=== PATIENT | male | born 1985 ===

== ENCOUNTER 2021-06-13 17:39 | Inpatient (IN) | payer MEDICAID ==
[~2021-06-13] VITALS: Ht 152.4 cm; Wt 59.5 kg
[2021-06-13 18:33] LABS: Basophils # (auto) 0.1 10 ^3/uL (0-0.2); Basophils % (auto) 0.5 % (0.0-2.0); Eosinophils # (auto) 0.2 10 ^3/uL (0-0.8); Eosinophils % (auto) 1.2 % (0.0-7.0); Hematocrit 48.9 % (41.0-53.0); Hemoglobin 16.3 g/dL (13.5-17.5); Lymphocytes # (auto) 1.9 10 ^3/uL (0.4-5.4); Mean Corpuscular Hemoglobin 30.4 pg (28.0-32.0); Mean Corpuscular Hgb Conc. 33.4 g/dL (32.0-36.0); Mean Corpuscular Volume 90.9 fL (80.0-100.0); Monocytes # (auto) 0.9 10 ^3/uL (0-1.3); Monocytes % (auto) 5.7 % (0.0-12.0); Neutrophils # (auto) 11.9 10 ^3/uL (1.6-8.6); Neutrophils % (auto) 79.6 % (37.0-80.0); Nucleated Red Blood Cells % 0.1 %; Red Blood Cells 5.38 10^6/uL (4.5-5.90); Red Cell Distribution Width 12.9 % (11.8-14.3)
[2021-06-13 18:50] LABS: Albumin 3.9 g/dL (3.4-5.0); Calcium 10.1 mg/dL (8.5-10.1); Potassium 4.9 mmol/L (3.5-5.1)
[2021-06-13 18:53] LABS: BUN/Creatinine Ratio 16.2
[2021-06-13 18:55] LABS: Bilirubin, Total 0.7 mg/dL (0.2-1.0)
[2021-06-13 21:12] LABS: Urine Bacteria FEW /hpf (None Seen); Urine Blood 3+ /uL (Negative); Urine Mucus FEW (None Seen); Urine Specific Gravity 1.019 (1.001-1.035); Urine WBC 3051 /hpf (0 - 3); Urine WBC Clumps PRESENT /hpf (None Seen)
[2021-06-13] MEDS ORDERED: methylPREDNISolone SOD SUCC 125 MG/2 ML VL IV ONE (21:30)
[2021-06-13] MEDS ORDERED: MORPHINE SULFATE 4 MG/ML SYR/VIAL IV ONE (21:30)
[2021-06-13] MEDS ORDERED: HEPARIN DRIP/D5W 100UNITS/ML 250 ML IV SCH (22:00)
[2021-06-13] MEDS ORDERED: HEPARIN SODIUM (PORCINE) 5000 UNITS/ML 1ML VIAL IV ONE (22:00)
[2021-06-13] MEDS ORDERED: NITROGLYCERIN 0.4 MG SL TAB SL ONE (22:15)
[2021-06-13] MEDS ORDERED: MORPHINE SULFATE INJECTION 2 MG/ML SYRG IV PRN (22:30)
[2021-06-13] MEDS ORDERED: ACETAMINOPHEN 325 MG TAB PO PRN (22:30)
[2021-06-13] MEDS ORDERED: HYDROcodone-ACET 5/325MG TAB PO PRN (22:30)
[2021-06-13] MEDS ORDERED: DOCUSATE SOD 100 MG CAP PO PRN (22:30)
[2021-06-13] MEDS ORDERED: DEXTROSE (50%) 50ML SYRG IV PRN (22:30)
[2021-06-13] MEDS ORDERED: NITROGLYCERIN 0.4 MG SL TAB SL PRN (22:30)
[2021-06-13] MEDS ORDERED: MORPHINE SULFATE 4 MG/ML SYR/VIAL IV PRN (22:30)
[2021-06-13 23:13] LABS: INR 0.99 (0.9-1.15)
[2021-06-14] VITALS: BP 135/87
[2021-06-14] MEDS: SODIUM CHLORIDE 0.9% 1,000 ML IV SCH ×2 (00:19→16:48)
[2021-06-14] MEDS: cefTRIAXone 1GM/50ML D5W 50 ML IV SCH ×2 (00:19→22:00)
[2021-06-14] MEDS: LORazepam 2MG/ML-1ML VIAL IV PRN (02:17)
[2021-06-14] MEDS ORDERED: NITROGLYCERIN 2% OINT 1GM PKG TD SCH (03:00)
[2021-06-14] MEDS: METOPROLOL TARTRATE 25 MG TAB PO SCH ×3 (03:17→22:09)
[2021-06-14 04:57] VITALS: BP 116/83
[2021-06-14 06:09] LABS: Basophils # (auto) 0 10 ^3/uL (0-0.2); Basophils % (auto) 0.1 % (0.0-2.0); Eosinophils # (auto) 0 10 ^3/uL (0-0.8); Eosinophils % (auto) 0.1 % (0.0-7.0); Hematocrit 48.8 % (41.0-53.0); Hemoglobin 16.3 g/dL (13.5-17.5); Lymphocytes # (auto) 1.2 10 ^3/uL (0.4-5.4); Mean Corpuscular Hemoglobin 30.6 pg (28.0-32.0); Mean Corpuscular Hgb Conc. 33.4 g/dL (32.0-36.0); Mean Corpuscular Volume 91.6 fL (80.0-100.0); Monocytes # (auto) 0.2 10 ^3/uL (0-1.3); Monocytes % (auto) 1.4 % (0.0-12.0); Neutrophils # (auto) 11.4 10 ^3/uL (1.6-8.6); Neutrophils % (auto) 89.4 % (37.0-80.0); Nucleated Red Blood Cells % 0.1 %; Red Blood Cells 5.33 10^6/uL (4.5-5.90); Red Cell Distribution Width 12.5 % (11.8-14.3); White Blood Cell 12.8 10^3/uL (4.4-10.8)
[2021-06-14 06:22] LABS: Albumin 3.1 g/dL (3.4-5.0); Calcium 8.8 mg/dL (8.5-10.1); Potassium 4.3 mmol/L (3.5-5.1)
[2021-06-14 06:28] LABS: INR 1.03 (0.9-1.15); Partial Thromboplastin Time 42.5 sec (23.6-33.0)
[2021-06-14 06:29] LABS: BUN/Creatinine Ratio 23.4; Bilirubin, Total 0.5 mg/dL (0.2-1.0); Total Protein 7.3 g/dL (6.4-8.2)
[2021-06-14] MEDS: InsuLIN REG 1unit/0.01ml Soln (100units/ml) SC SCH ×4 (06:48→22:19)
[2021-06-14] MEDS: ACCU-CHEK COMFORT CURVE STRIP VI SCH ×4 (06:48→22:09)
[2021-06-14] MEDS ORDERED: ANGIOMAX 250 MG VIAL IV ONE (07:19)
[2021-06-14] MEDS ORDERED: HEPARIN SODIUM (PORCINE) 5000 UNITS/ML 1ML VIAL ONE (07:19)
[2021-06-14] MEDS ORDERED: VERAPAMIL 2.5MG/ML INJ 2ML VIAL IV ONE (07:19)
[2021-06-14] MEDS ORDERED: MIDAZOLAM HCL 2MG/2ML 2ml VIAL (1mg/ml) ONE ×2 (07:20→11:15)
[2021-06-14] MEDS ORDERED: HEPARIN IN NS 1000Units/500mL 0 ML ONE (07:20)
[2021-06-14] MEDS ORDERED: fentaNYL CITRATE 100 MCG/2 ML VL ONE (07:20)
[2021-06-14] MEDS ORDERED: SODIUM CHL 0.9% 50 ML ONE (07:20)
[2021-06-14] MEDS ORDERED: IODIXANOL 320MG/ML 100ML BTL IV ONE ×3 (07:20→11:13)
[2021-06-14] MEDS ORDERED: LIDOCAINE 2%HCL (LOCAL ANESTH.) INJ 20ML MDV ONE ×2 (07:20→10:00)
[2021-06-14] MEDS ORDERED: INFLUENZA QUAD 2021-2022 0.5 ML SYRG IM ONE (07:45)
[2021-06-14 09:01] VITALS: BP 122/70
[2021-06-14] MEDS ORDERED: ASPirin 81 mg TAB PO SCH (10:00)
[2021-06-14] MEDS ORDERED: CLOPIDOGREL 300 MG TAB ONE (11:20)
[2021-06-14] MEDS ORDERED: ASPirin 325 MG TAB ONE (11:22)
[2021-06-14] MEDS: FAMOTIDINE (10MG/ML) 2ML VL IV SCH ×2 (13:38→22:09)
[2021-06-14 17:00] VITALS: BP 100/65
[2021-06-14 22:00] VITALS: BP 121/73
[2021-06-14] MEDS ORDERED: ATORVASTATIN 20 MG TAB PO SCH (22:00)
[2021-06-14] MEDS ORDERED: levoFLOXacin 500MG 100 ML IV SCH (22:00)
[2021-06-14] MEDS: ATORVASTATIN 20 MG TAB PO SCH (22:08)
[2021-06-15] MEDS: diphenhdrAMINE HCL 50 MG/1 ML VL IV PRN (02:22)
[2021-06-15 05:00] VITALS: BP 105/69
[2021-06-15] MEDS: InsuLIN REG 1unit/0.01ml Soln (100units/ml) SC SCH ×4 (06:25→22:29)
[2021-06-15] MEDS: ACCU-CHEK COMFORT CURVE STRIP VI SCH ×4 (06:25→22:26)
[2021-06-15 07:18] LABS: Basophils # (auto) 0 10 ^3/uL (0-0.2); Basophils % (auto) 0.1 % (0.0-2.0); Eosinophils # (auto) 0 10 ^3/uL (0-0.8); Hemoglobin 15.3 g/dL (13.5-17.5); Lymphocytes # (auto) 1.6 10 ^3/uL (0.4-5.4); Mean Corpuscular Hemoglobin 30.8 pg (28.0-32.0); Mean Corpuscular Volume 90.8 fL (80.0-100.0); Monocytes # (auto) 1.1 10 ^3/uL (0-1.3); Monocytes % (auto) 8.6 % (0.0-12.0); Neutrophils # (auto) 9.7 10 ^3/uL (1.6-8.6); Neutrophils % (auto) 78.3 % (37.0-80.0); Nucleated Red Blood Cells % 0.1 %; Red Blood Cells 4.96 10^6/uL (4.5-5.90); Red Cell Distribution Width 12.3 % (11.8-14.3); White Blood Cell 12.4 10^3/uL (4.4-10.8)
[2021-06-15 07:42] LABS: Albumin 2.7 g/dL (3.4-5.0); BUN/Creatinine Ratio 23.8; Calcium 8.5 mg/dL (8.5-10.1)
[2021-06-15 07:47] LABS: Bilirubin, Total 0.7 mg/dL (0.2-1.0); Total Protein 6.6 g/dL (6.4-8.2)
[2021-06-15 08:15] VITALS: BP 100/73
[2021-06-15 08:30] VITALS: BP 100/73
[2021-06-15] MEDS: METOPROLOL TARTRATE 25 MG TAB PO SCH ×2 (10:00→22:00)
[2021-06-15] MEDS ORDERED: CIPROFLOXACIN 400MG/200ML 200 ML IV SCH (10:00)
[2021-06-15] MEDS ORDERED: LISINOPRIL 5 MG TAB PO SCH (10:00)
[2021-06-15] MEDS: FAMOTIDINE (10MG/ML) 2ML VL IV SCH ×2 (10:08→22:26)
[2021-06-15] MEDS: ASPirin-EC 81 mg tab PO SCH (10:08)
[2021-06-15] MEDS: CLOPIDOGREL BISULFATE 75 MG TAB PO SCH (10:09)
[2021-06-15] MEDS: NITROFURANTOIN 100 mg CAP PO SCH ×2 (13:02→22:26)
[2021-06-15 13:30] VITALS: BP 101/68
[2021-06-15 16:46] VITALS: BP 117/76
[2021-06-15 22:00] VITALS: BP 103/70
[2021-06-15] MEDS: SACUBITRIL-VALSARTAN 24mg/26mg TAB PO SCH (22:00)
[2021-06-15] MEDS: ATORVASTATIN 20 MG TAB PO SCH (22:26)
[2021-06-16 05:00] VITALS: BP 107/67
[2021-06-16] MEDS: ACCU-CHEK COMFORT CURVE STRIP VI SCH ×4 (06:15→21:24)
[2021-06-16] MEDS: InsuLIN REG 1unit/0.01ml Soln (100units/ml) SC SCH ×4 (06:16→21:27)
[2021-06-16 08:15] VITALS: BP 110/76
[2021-06-16 08:58] LABS: BUN/Creatinine Ratio 19.2; Calcium 8.5 mg/dL (8.5-10.1); Potassium 3.8 mmol/L (3.5-5.1)
[2021-06-16 09:00] VITALS: BP 110/76
[2021-06-16] MEDS ORDERED: metroNIDAZOLE 500MG/100ML 100 ML IV SCH (10:00)
[2021-06-16] MEDS: FAMOTIDINE (10MG/ML) 2ML VL IV SCH ×2 (10:00→21:23)
[2021-06-16] MEDS: SACUBITRIL-VALSARTAN 24mg/26mg TAB PO SCH ×2 (10:01→21:23)
[2021-06-16] MEDS: ASPirin-EC 81 mg tab PO SCH (10:01)
[2021-06-16] MEDS: CLOPIDOGREL BISULFATE 75 MG TAB PO SCH (10:01)
[2021-06-16] MEDS: NITROFURANTOIN 100 mg CAP PO SCH ×2 (10:01→21:23)
[2021-06-16] MEDS: METOPROLOL TARTRATE 25 MG TAB PO SCH ×2 (10:23→21:24)
[2021-06-16 13:00] VITALS: BP 90/61
[2021-06-16 17:03] VITALS: BP 112/77
[2021-06-16] MEDS: metroNIDAZOLE 500MG/100ML 100 ML IV SCH (18:20)
[2021-06-16] MEDS ORDERED: CLINIMIX PER PHARMACY 0 ML IV SCH ×2 (18:30→23:30)
[2021-06-16] MEDS: CLINIMIX PER PHARMACY IV NR (19:47)
[2021-06-16] MEDS: ATORVASTATIN 20 MG TAB PO SCH (21:08)
[2021-06-16 22:00] VITALS: BP 107/69
[2021-06-17] MEDS: metroNIDAZOLE 500MG/100ML 100 ML IV SCH ×3 (02:03→18:08)
[2021-06-17 05:00] VITALS: BP 106/66
[2021-06-17] MEDS: ACCU-CHEK COMFORT CURVE STRIP VI SCH ×7 (06:27→23:58)
[2021-06-17] MEDS: InsuLIN REG 1unit/0.01ml Soln (100units/ml) SC SCH ×3 (06:28→18:00)
[2021-06-17 09:36] VITALS: BP 104/76
[2021-06-17] MEDS ORDERED: ERTAPENEM SOD INJ 1 GM in SODIUM CHL 0.9% 50 ML IV ONE (11:00)
[2021-06-17 11:04] LABS: Potassium 3.5 mmol/L (3.5-5.1)
[2021-06-17 11:06] LABS: Magnesium 2.2 mg/dL (1.6-2.6); Phosphorus 2.9 mg/dL (2.5-4.90); Pre Albumin 13.4 mg/dL (20.0-40.0)
[2021-06-17 11:26] LABS: Albumin 2.4 g/dL (3.4-5.0); Bilirubin, Total 1.5 mg/dL (0.2-1.0); Calcium 8.3 mg/dL (8.5-10.1)
[2021-06-17] MEDS: FAMOTIDINE (10MG/ML) 2ML VL IV SCH ×2 (11:34→21:23)
[2021-06-17] MEDS: CARVEDILOL 3.125 MG TAB PO SCH ×2 (11:35→22:00)
[2021-06-17] MEDS: ASPirin-EC 81 mg tab PO SCH (11:36)
[2021-06-17] MEDS: CLOPIDOGREL BISULFATE 75 MG TAB PO SCH (11:36)
[2021-06-17] MEDS: SACUBITRIL-VALSARTAN 24mg/26mg TAB PO SCH ×2 (11:36→21:24)
[2021-06-17] MEDS ORDERED: DEXTROSE (50%) 50ML SYRG IV SCH (12:00)
[2021-06-17] MEDS ORDERED: POTASSIUM PHOSPHATE 22 MEQ in SODIUM CHL 0.9% 100 ML IV ONE (12:00)
[2021-06-17 13:00] VITALS: BP 101/54
[2021-06-17] MEDS ORDERED: IOTHALAMATE MEGLUMINE INJ 250ML BOT UR ONE (15:23)
[2021-06-17 17:00] VITALS: BP 109/71
[2021-06-17] MEDS: CLINIMIX PER PHARMACY IV NR (19:49)
[2021-06-17] MEDS ORDERED: AMINO ACID INFUSION IN D10W 1,000 ML IV NR (20:00)
[2021-06-17] MEDS: ATORVASTATIN 20 MG TAB PO SCH (21:24)
[2021-06-17 22:00] VITALS: BP 101/60
[2021-06-18] MEDS: InsuLIN REG 1unit/0.01ml Soln (100units/ml) SC SCH ×5 (00:02→23:58)
[2021-06-18] MEDS: metroNIDAZOLE 500MG/100ML 100 ML IV SCH ×3 (03:49→17:24)
[2021-06-18 05:30] VITALS: BP 106/75
[2021-06-18] MEDS: ACCU-CHEK COMFORT CURVE STRIP VI SCH ×8 (05:54→23:59)
[2021-06-18 07:25] LABS: Albumin 2.4 g/dL (3.4-5.0); Calcium 8.2 mg/dL (8.5-10.1); Magnesium 2.3 mg/dL (1.6-2.6); Potassium 3.9 mmol/L (3.5-5.1)
[2021-06-18 07:27] LABS: BUN/Creatinine Ratio 15.8; Phosphorus 3.3 mg/dL (2.5-4.90); Total Protein 6.7 g/dL (6.4-8.2)
[2021-06-18 08:41] VITALS: BP 105/75
[2021-06-18] MEDS: FAMOTIDINE (10MG/ML) 2ML VL IV SCH ×2 (10:45→21:13)
[2021-06-18] MEDS: ASPirin-EC 81 mg tab PO SCH (10:45)
[2021-06-18] MEDS: CLOPIDOGREL BISULFATE 75 MG TAB PO SCH (10:47)
[2021-06-18] MEDS: ERTAPENEM SOD INJ 1 GM in SODIUM CHL 0.9% 50 ML IV SCH (10:48)
[2021-06-18] MEDS: SACUBITRIL-VALSARTAN 24mg/26mg TAB PO SCH ×2 (11:05→21:13)
[2021-06-18] MEDS: CARVEDILOL 3.125 MG TAB PO SCH ×2 (11:05→21:47)
[2021-06-18 12:37] LABS: INR 1.12 (0.9-1.15); Partial Thromboplastin Time 30.2 sec (23.6-33.0)
[2021-06-18 13:00] VITALS: BP 94/61
[2021-06-18] MEDS ORDERED: LIDOCAINE 1% (LOCAL ANESTH.) PF 5ml SDV ID ONE (15:30)
[2021-06-18 17:00] VITALS: BP 112/79
[2021-06-18] MEDS: LORazepam 2MG/ML-1ML VIAL IV PRN (17:01)
[2021-06-18] MEDS ORDERED: AMINO ACID ELECTROLYTE W/ CALC 1,000 ML IV SCH (20:00)
[2021-06-18] MEDS: ATORVASTATIN 20 MG TAB PO SCH (21:13)
[2021-06-18] MEDS: SODIUM CHLOR 0.9% PF (SALINE LOCK) 10ML VIAL/SYR IV SCH (21:46)
[2021-06-18 22:00] VITALS: BP 94/67
[2021-06-19] MEDS: metroNIDAZOLE 500MG/100ML 100 ML IV SCH ×3 (02:20→17:48)
[2021-06-19 04:51] VITALS: BP 107/70
[2021-06-19] MEDS: ACCU-CHEK COMFORT CURVE STRIP VI SCH ×5 (05:43→23:38)
[2021-06-19] MEDS: InsuLIN REG 1unit/0.01ml Soln (100units/ml) SC SCH ×4 (05:45→23:39)
[2021-06-19 07:25] LABS: Albumin 2.7 g/dL (3.4-5.0); Calcium 8.4 mg/dL (8.5-10.1); Magnesium 2.4 mg/dL (1.6-2.6); Potassium 4.8 mmol/L (3.5-5.1)
[2021-06-19 07:30] LABS: BUN/Creatinine Ratio 19.4; Bilirubin, Total 0.8 mg/dL (0.2-1.0); Phosphorus 3.3 mg/dL (2.5-4.90); Total Protein 6.4 g/dL (6.4-8.2)
[2021-06-19 09:00] VITALS: BP 106/67
[2021-06-19] MEDS: ERTAPENEM SOD INJ 1 GM in SODIUM CHL 0.9% 50 ML IV SCH (10:24)
[2021-06-19] MEDS: FAMOTIDINE (10MG/ML) 2ML VL IV SCH ×2 (10:25→22:05)
[2021-06-19] MEDS: CLOPIDOGREL BISULFATE 75 MG TAB PO SCH (10:28)
[2021-06-19] MEDS: ASPirin-EC 81 mg tab PO SCH (10:28)
[2021-06-19] MEDS: SACUBITRIL-VALSARTAN 24mg/26mg TAB PO SCH ×2 (10:28→22:07)
[2021-06-19] MEDS: CARVEDILOL 3.125 MG TAB PO SCH ×2 (10:29→22:07)
[2021-06-19] MEDS: SODIUM CHLOR 0.9% PF (SALINE LOCK) 10ML VIAL/SYR IV SCH ×2 (10:30→22:08)
[2021-06-19 13:00] VITALS: BP 106/70
[2021-06-19 16:57] VITALS: BP 112/65
[2021-06-19 20:00] VITALS: BP 102/86
[2021-06-19] MEDS ORDERED: AMINO ACID INFUSION IN D10W 1,000 ML IV NR (20:00)
[2021-06-19 21:59] VITALS: BP 102/56
[2021-06-19] MEDS: ATORVASTATIN 20 MG TAB PO SCH (22:07)
[2021-06-20] MEDS: metroNIDAZOLE 500MG/100ML 100 ML IV SCH ×3 (02:38→18:13)
[2021-06-20 05:00] VITALS: BP 101/58
[2021-06-20] MEDS: ACCU-CHEK COMFORT CURVE STRIP VI SCH ×3 (06:01→18:00)
[2021-06-20] MEDS: InsuLIN REG 1unit/0.01ml Soln (100units/ml) SC SCH ×3 (06:03→18:00)
[2021-06-20 06:17] LABS: Albumin 2.6 g/dL (3.4-5.0); Calcium 8.3 mg/dL (8.5-10.1); Magnesium 2.3 mg/dL (1.6-2.6); Potassium 5.3 mmol/L (3.5-5.1)
[2021-06-20 06:20] LABS: BUN/Creatinine Ratio 16.3; Bilirubin, Total 0.5 mg/dL (0.2-1.0); Phosphorus 2.6 mg/dL (2.5-4.90); Total Protein 6.7 g/dL (6.4-8.2)
[2021-06-20 09:00] VITALS: BP 112/74
[2021-06-20] MEDS: ERTAPENEM SOD INJ 1 GM in SODIUM CHL 0.9% 50 ML IV SCH (09:21)
[2021-06-20] MEDS: FAMOTIDINE (10MG/ML) 2ML VL IV SCH ×2 (09:22→21:46)
[2021-06-20] MEDS: SODIUM CHLOR 0.9% PF (SALINE LOCK) 10ML VIAL/SYR IV SCH ×2 (09:22→21:48)
[2021-06-20] MEDS: CARVEDILOL 3.125 MG TAB PO SCH ×2 (09:23→21:48)
[2021-06-20] MEDS: SACUBITRIL-VALSARTAN 24mg/26mg TAB PO SCH ×2 (09:24→21:46)
[2021-06-20] MEDS: ASPirin-EC 81 mg tab PO SCH (10:45)
[2021-06-20] MEDS: CLOPIDOGREL BISULFATE 75 MG TAB PO SCH (10:46)
[2021-06-20 13:00] VITALS: BP 103/76
[2021-06-20 16:45] VITALS: BP 85/55
[2021-06-20 20:00] VITALS: BP 99/65
[2021-06-20] MEDS ORDERED: AMINO ACID INFUSION IN D10W 1,000 ML IV NR (20:00)
[2021-06-20] MEDS: ATORVASTATIN 20 MG TAB PO SCH (21:46)
[2021-06-20 22:00] VITALS: BP 99/65
[2021-06-21] MEDS: ACCU-CHEK COMFORT CURVE STRIP VI SCH ×5 (00:06→23:42)
[2021-06-21] MEDS: metroNIDAZOLE 500MG/100ML 100 ML IV SCH ×3 (02:30→17:39)
[2021-06-21] MEDS: InsuLIN REG 1unit/0.01ml Soln (100units/ml) SC SCH ×5 (05:56→23:42)
[2021-06-21 06:05] VITALS: BP 99/62
[2021-06-21 06:34] LABS: Albumin 2.4 g/dL (3.4-5.0); Calcium 7.9 mg/dL (8.5-10.1); Magnesium 2.7 mg/dL (1.6-2.6); Potassium 4.4 mmol/L (3.5-5.1)
[2021-06-21 06:39] LABS: BUN/Creatinine Ratio 16.3; Bilirubin, Total 0.4 mg/dL (0.2-1.0); Phosphorus 2.8 mg/dL (2.5-4.90)
[2021-06-21 08:41] VITALS: BP 104/74
[2021-06-21] MEDS: CLOPIDOGREL BISULFATE 75 MG TAB PO SCH (09:20)
[2021-06-21] MEDS: FAMOTIDINE (10MG/ML) 2ML VL IV SCH ×2 (09:21→21:57)
[2021-06-21] MEDS: CARVEDILOL 3.125 MG TAB PO SCH ×2 (09:21→21:58)
[2021-06-21] MEDS: ASPirin-EC 81 mg tab PO SCH (09:21)
[2021-06-21] MEDS: SODIUM CHLOR 0.9% PF (SALINE LOCK) 10ML VIAL/SYR IV SCH ×2 (09:21→21:58)
[2021-06-21] MEDS: SACUBITRIL-VALSARTAN 24mg/26mg TAB PO SCH ×2 (10:00→21:58)
[2021-06-21 12:46] VITALS: BP 108/67
[2021-06-21] MEDS: ERTAPENEM SOD INJ 1 GM in SODIUM CHL 0.9% 50 ML IV SCH (13:28)
[2021-06-21] MEDS ORDERED: TPN PER PHARMACY 0 ML IV SCH (14:45)
[2021-06-21 16:51] VITALS: BP 103/67
[2021-06-21] MEDS ORDERED: AMINO ACID INFUSION IN D10W 1,000 ML IV NR (20:00)
[2021-06-21 21:30] VITALS: BP 102/61
[2021-06-21] MEDS: ATORVASTATIN 20 MG TAB PO SCH (22:03)
[2021-06-22] VITALS (7 sets, daily range): BP systolic 86–103; BP diastolic 53–70
[2021-06-22] MEDS: metroNIDAZOLE 500MG/100ML 100 ML IV SCH ×3 (03:56→18:32)
[2021-06-22] MEDS: InsuLIN REG 1unit/0.01ml Soln (100units/ml) SC SCH ×3 (05:56→17:26)
[2021-06-22] MEDS: ACCU-CHEK COMFORT CURVE STRIP VI SCH ×3 (05:57→17:25)
[2021-06-22 07:03] LABS: Calcium 8.4 mg/dL (8.5-10.1); Potassium 4.4 mmol/L (3.5-5.1)
[2021-06-22 07:06] LABS: Albumin 2.5 g/dL (3.4-5.0); BUN/Creatinine Ratio 16.9; Magnesium 2.5 mg/dL (1.6-2.6)
[2021-06-22 07:09] LABS: Bilirubin, Total 0.5 mg/dL (0.2-1.0); Phosphorus 2.9 mg/dL (2.5-4.90); Total Protein 6.1 g/dL (6.4-8.2)
[2021-06-22] MEDS: CLOPIDOGREL BISULFATE 75 MG TAB PO SCH (09:51)
[2021-06-22] MEDS: SACUBITRIL-VALSARTAN 24mg/26mg TAB PO SCH ×2 (09:51→22:08)
[2021-06-22] MEDS: ASPirin-EC 81 mg tab PO SCH (09:51)
[2021-06-22] MEDS: FAMOTIDINE (10MG/ML) 2ML VL IV SCH ×2 (09:53→22:09)
[2021-06-22] MEDS: SODIUM CHLOR 0.9% PF (SALINE LOCK) 10ML VIAL/SYR IV SCH ×2 (09:53→22:08)
[2021-06-22] MEDS: CARVEDILOL 3.125 MG TAB PO SCH ×2 (09:54→21:40)
[2021-06-22] MEDS: ERTAPENEM SOD INJ 1 GM in SODIUM CHL 0.9% 50 ML IV SCH (09:54)
[2021-06-22] MEDS ORDERED: TPN PER PHARMACY IV NR ×6 (20:00)
[2021-06-22] MEDS: ATORVASTATIN 20 MG TAB PO SCH (22:09)
[2021-06-23] MEDS: ACCU-CHEK COMFORT CURVE STRIP VI SCH ×5 (00:07→23:23)
[2021-06-23] MEDS: InsuLIN REG 1unit/0.01ml Soln (100units/ml) SC SCH ×5 (00:15→23:27)
[2021-06-23] MEDS: metroNIDAZOLE 500MG/100ML 100 ML IV SCH ×3 (03:15→17:57)
[2021-06-23 05:00] VITALS: BP 83/60
[2021-06-23 05:42] LABS: Basophils # (auto) 0 10 ^3/uL (0-0.2); Basophils % (auto) 0.7 % (0.0-2.0); Eosinophils # (auto) 0.3 10 ^3/uL (0-0.8); Eosinophils % (auto) 3.9 % (0.0-7.0); Hematocrit 46.7 % (41.0-53.0); Hemoglobin 15.6 g/dL (13.5-17.5); Lymphocytes # (auto) 1.4 10 ^3/uL (0.4-5.4); Lymphocytes % (auto) 20.6 % (10.0-50.0); Mean Corpuscular Hemoglobin 30.4 pg (28.0-32.0); Mean Corpuscular Hgb Conc. 33.4 g/dL (32.0-36.0); Monocytes # (auto) 0.8 10 ^3/uL (0-1.3); Monocytes % (auto) 11.3 % (0.0-12.0); Neutrophils # (auto) 4.3 10 ^3/uL (1.6-8.6); Neutrophils % (auto) 63.5 % (37.0-80.0); Red Blood Cells 5.13 10^6/uL (4.5-5.90); Red Cell Distribution Width 12.3 % (11.8-14.3); White Blood Cell 6.7 10^3/uL (4.4-10.8)
[2021-06-23 05:59] LABS: Albumin 2.5 g/dL (3.4-5.0); Calcium 8.4 mg/dL (8.5-10.1); Magnesium 2.6 mg/dL (1.6-2.6)
[2021-06-23 06:01] LABS: BUN/Creatinine Ratio 16.7
[2021-06-23 06:11] LABS: Bilirubin, Total 0.4 mg/dL (0.2-1.0); Phosphorus 3.3 mg/dL (2.5-4.90); Total Protein 6.2 g/dL (6.4-8.2)
[2021-06-23 08:51] VITALS: BP 96/65
[2021-06-23] MEDS ORDERED: SODIUM CHLORIDE 0.9% 1,000 ML IV ONE (09:30)
[2021-06-23] MEDS: ERTAPENEM SOD INJ 1 GM in SODIUM CHL 0.9% 50 ML IV SCH (09:30)
[2021-06-23] MEDS: SODIUM CHLOR 0.9% PF (SALINE LOCK) 10ML VIAL/SYR IV SCH ×2 (09:32→22:14)
[2021-06-23] MEDS: FAMOTIDINE (10MG/ML) 2ML VL IV SCH ×2 (09:32→22:14)
[2021-06-23] MEDS: CARVEDILOL 3.125 MG TAB PO SCH ×2 (09:32→22:00)
[2021-06-23] MEDS: SACUBITRIL-VALSARTAN 24mg/26mg TAB PO SCH ×2 (09:33→22:15)
[2021-06-23] MEDS: CLOPIDOGREL BISULFATE 75 MG TAB PO SCH (09:35)
[2021-06-23] MEDS: ASPirin-EC 81 mg tab PO SCH (09:36)
[2021-06-23 11:55] VITALS: BP 91/68
[2021-06-23 14:15] VITALS: BP 106/62
[2021-06-23 17:38] VITALS: BP 102/65
[2021-06-23] MEDS ORDERED: TPN PER PHARMACY IV NR ×5 (20:00)
[2021-06-23 22:00] VITALS: BP 99/57
[2021-06-23] MEDS: ATORVASTATIN 20 MG TAB PO SCH (22:15)
[2021-06-24] MEDS: metroNIDAZOLE 500MG/100ML 100 ML IV SCH ×2 (03:13→10:26)
[2021-06-24 05:00] VITALS: BP 92/62
[2021-06-24] MEDS: ACCU-CHEK COMFORT CURVE STRIP VI SCH ×4 (06:33→23:57)
[2021-06-24] MEDS: InsuLIN REG 1unit/0.01ml Soln (100units/ml) SC SCH ×3 (06:39→18:52)
[2021-06-24 07:53] LABS: Albumin 2.5 g/dL (3.4-5.0); Magnesium 2.9 mg/dL (1.6-2.6); Potassium 4.5 mmol/L (3.5-5.1)
[2021-06-24 08:00] LABS: BUN/Creatinine Ratio 14.3; Bilirubin, Total 0.3 mg/dL (0.2-1.0); Pre Albumin 19.7 mg/dL (20.0-40.0); Total Protein 6.1 g/dL (6.4-8.2)
[2021-06-24 09:00] VITALS: BP 96/61
[2021-06-24] MEDS: CARVEDILOL 3.125 MG TAB PO SCH ×2 (10:00→23:32)
[2021-06-24] MEDS: SACUBITRIL-VALSARTAN 24mg/26mg TAB PO SCH ×2 (10:00→23:27)
[2021-06-24] MEDS: ERTAPENEM SOD INJ 1 GM in SODIUM CHL 0.9% 50 ML IV SCH (10:24)
[2021-06-24] MEDS: FAMOTIDINE (10MG/ML) 2ML VL IV SCH ×2 (10:25→23:26)
[2021-06-24] MEDS: SODIUM CHLOR 0.9% PF (SALINE LOCK) 10ML VIAL/SYR IV SCH ×2 (10:25→23:32)
[2021-06-24] MEDS: ASPirin-EC 81 mg tab PO SCH (10:25)
[2021-06-24] MEDS: CLOPIDOGREL BISULFATE 75 MG TAB PO SCH (10:25)
[2021-06-24 13:00] VITALS: BP 117/78
[2021-06-24 17:00] VITALS: BP 118/79
[2021-06-24] MEDS: TPN PER PHARMACY IV NR ×16 (20:30→23:25)
[2021-06-24 22:00] VITALS: BP 91/39
[2021-06-24] MEDS: ATORVASTATIN 20 MG TAB PO SCH (23:27)
[2021-06-25] MEDS: InsuLIN REG 1unit/0.01ml Soln (100units/ml) SC SCH ×4 (00:06→18:37)
[2021-06-25 05:00] VITALS: BP 93/50
[2021-06-25 07:13] LABS: Potassium 5.2 mmol/L (3.5-5.1)
[2021-06-25 07:23] LABS: Albumin 2.6 g/dL (3.4-5.0); BUN/Creatinine Ratio 15.6; Bilirubin, Total 0.3 mg/dL (0.2-1.0); Calcium 8.4 mg/dL (8.5-10.1); Magnesium 2.7 mg/dL (1.6-2.6); Phosphorus 3.3 mg/dL (2.5-4.90); Total Protein 6.4 g/dL (6.4-8.2)
[2021-06-25 09:00] VITALS: BP 93/51
[2021-06-25] MEDS: ERTAPENEM SOD INJ 1 GM in SODIUM CHL 0.9% 50 ML IV SCH (09:58)
[2021-06-25] MEDS: CARVEDILOL 3.125 MG TAB PO SCH ×2 (09:58→23:32)
[2021-06-25] MEDS: SODIUM CHLOR 0.9% PF (SALINE LOCK) 10ML VIAL/SYR IV SCH ×2 (09:58→23:26)
[2021-06-25] MEDS: CLOPIDOGREL BISULFATE 75 MG TAB PO SCH (09:58)
[2021-06-25] MEDS: FAMOTIDINE (10MG/ML) 2ML VL IV SCH ×2 (09:58→23:26)
[2021-06-25] MEDS: SACUBITRIL-VALSARTAN 24mg/26mg TAB PO SCH ×2 (09:59→23:34)
[2021-06-25] MEDS: ASPirin-EC 81 mg tab PO SCH (09:59)
[2021-06-25] MEDS: ACCU-CHEK COMFORT CURVE STRIP VI SCH ×3 (12:43→18:36)
[2021-06-25 13:00] VITALS: BP 89/45
[2021-06-25] MEDS ORDERED: MAGNESIUM CITRATE SOLUTION 300 ML BTL PO ONE (16:00)
[2021-06-25 17:01] VITALS: BP 85/48
[2021-06-25] MEDS ORDERED: TPN PER PHARMACY IV NR ×6 (20:00)
[2021-06-25 22:00] VITALS: BP 85/54
[2021-06-25] MEDS: ATORVASTATIN 20 MG TAB PO SCH (23:34)
[2021-06-26] MEDS: InsuLIN REG 1unit/0.01ml Soln (100units/ml) SC SCH ×4 (00:33→18:00)
[2021-06-26] MEDS: ACCU-CHEK COMFORT CURVE STRIP VI SCH ×4 (00:34→18:25)
[2021-06-26 05:00] VITALS: BP 93/55
[2021-06-26] MEDS ORDERED: MAGNESIUM CITRATE SOLUTION 300 ML BTL PO ONE (06:00)
[2021-06-26 06:06] LABS: Potassium 4.3 mmol/L (3.5-5.1)
[2021-06-26 06:12] LABS: Albumin 2.6 g/dL (3.4-5.0); BUN/Creatinine Ratio 18.6; Bilirubin, Total 0.3 mg/dL (0.2-1.0); Calcium 8.4 mg/dL (8.5-10.1); Magnesium 2.4 mg/dL (1.6-2.6); Phosphorus 3.3 mg/dL (2.5-4.90); Total Protein 6.2 g/dL (6.4-8.2)
[2021-06-26 09:00] VITALS: BP 93/59
[2021-06-26] MEDS: SODIUM CHLOR 0.9% PF (SALINE LOCK) 10ML VIAL/SYR IV SCH ×2 (10:00→21:44)
[2021-06-26] MEDS: SACUBITRIL-VALSARTAN 24mg/26mg TAB PO SCH ×2 (10:00→21:45)
[2021-06-26] MEDS: FAMOTIDINE (10MG/ML) 2ML VL IV SCH ×2 (10:00→21:44)
[2021-06-26] MEDS: CLOPIDOGREL BISULFATE 75 MG TAB PO SCH (10:00)
[2021-06-26] MEDS: ASPirin-EC 81 mg tab PO SCH (10:00)
[2021-06-26] MEDS: ERTAPENEM SOD INJ 1 GM in SODIUM CHL 0.9% 50 ML IV SCH (10:00)
[2021-06-26] MEDS: CARVEDILOL 3.125 MG TAB PO SCH ×2 (10:00→21:48)
[2021-06-26] MEDS ORDERED: diphenhdrAMINE HCL 50 MG/1 ML VL ONE (10:13)
[2021-06-26] MEDS ORDERED: fentaNYL CITRATE 100 MCG/2 ML VL ONE (10:13)
[2021-06-26] MEDS ORDERED: MIDAZOLAM HCL 5 MG/ML-1ML VIAL ONE (10:13)
[2021-06-26 12:30] VITALS: BP 94/54
[2021-06-26 15:26] LABS: Basophils # (auto) 0.1 10 ^3/uL (0-0.2); Eosinophils # (auto) 0.2 10 ^3/uL (0-0.8); Eosinophils % (auto) 2.4 % (0.0-7.0); Hematocrit 45.1 % (41.0-53.0); Hemoglobin 15.1 g/dL (13.5-17.5); Lymphocytes # (auto) 1.9 10 ^3/uL (0.4-5.4); Lymphocytes % (auto) 21.4 % (10.0-50.0); Mean Corpuscular Hemoglobin 30.3 pg (28.0-32.0); Mean Corpuscular Hgb Conc. 33.4 g/dL (32.0-36.0); Mean Corpuscular Volume 90.9 fL (80.0-100.0); Monocytes % (auto) 11.2 % (0.0-12.0); Neutrophils # (auto) 5.7 10 ^3/uL (1.6-8.6); Red Blood Cells 4.97 10^6/uL (4.5-5.90)
[2021-06-26 15:35] LABS: Albumin 2.5 g/dL (3.4-5.0); Calcium 7.9 mg/dL (8.5-10.1); Potassium 4.5 mmol/L (3.5-5.1)
[2021-06-26 15:38] LABS: BUN/Creatinine Ratio 19.5; Bilirubin, Total 0.2 mg/dL (0.2-1.0); Total Protein 6.3 g/dL (6.4-8.2)
[2021-06-26 15:41] LABS: INR 1.13 (0.9-1.15); Partial Thromboplastin Time 29.2 sec (23.6-33.0)
[2021-06-26 17:00] VITALS: BP 90/49
[2021-06-26] MEDS ORDERED: TPN PER PHARMACY IV NR ×9 (20:00)
[2021-06-26] MEDS: ATORVASTATIN 20 MG TAB PO SCH (21:45)
[2021-06-26 22:30] VITALS: BP 93/55
[2021-06-27] MEDS: InsuLIN REG 1unit/0.01ml Soln (100units/ml) SC SCH ×5 (01:46→21:06)
[2021-06-27] MEDS: ACCU-CHEK COMFORT CURVE STRIP VI SCH ×5 (01:47→21:06)
[2021-06-27 05:30] VITALS: BP 90/60
[2021-06-27] MEDS ORDERED: D5W 5% 1,000 ML IV STA (06:17)
[2021-06-27 08:31] LABS: Calcium 8.1 mg/dL (8.5-10.1); Magnesium 3.1 mg/dL (1.6-2.6); Potassium 4.8 mmol/L (3.5-5.1)
[2021-06-27 08:36] LABS: Albumin 2.4 g/dL (3.4-5.0); BUN/Creatinine Ratio 17.3; Bilirubin, Total 0.3 mg/dL (0.2-1.0); Phosphorus 1.9 mg/dL (2.5-4.90); Total Protein 6.1 g/dL (6.4-8.2)
[2021-06-27 09:00] VITALS: BP 103/61
[2021-06-27] MEDS: CARVEDILOL 3.125 MG TAB PO SCH ×2 (09:50→21:08)
[2021-06-27] MEDS: ASPirin-EC 81 mg tab PO SCH ×2 (09:50→16:28)
[2021-06-27] MEDS: CLOPIDOGREL BISULFATE 75 MG TAB PO SCH ×2 (09:51→16:29)
[2021-06-27] MEDS ORDERED: SODIUM PHOSP 40 MEQ in D5W 5% 250 ML IV ONE (10:00)
[2021-06-27] MEDS: FAMOTIDINE (10MG/ML) 2ML VL IV SCH ×2 (10:41→21:05)
[2021-06-27] MEDS: SACUBITRIL-VALSARTAN 24mg/26mg TAB PO SCH ×2 (10:42→21:07)
[2021-06-27] MEDS: ERTAPENEM SOD INJ 1 GM in SODIUM CHL 0.9% 50 ML IV SCH (10:42)
[2021-06-27] MEDS: SODIUM CHLOR 0.9% PF (SALINE LOCK) 10ML VIAL/SYR IV SCH ×2 (10:43→21:09)
[2021-06-27 13:00] VITALS: BP 102/63
[2021-06-27 17:00] VITALS: BP 108/57
[2021-06-27] MEDS ORDERED: TPN PER PHARMACY IV NR ×7 (20:00)
[2021-06-27] MEDS: ATORVASTATIN 20 MG TAB PO SCH (21:06)
[2021-06-27 22:00] VITALS: BP 100/63
[2021-06-28] MEDS: InsuLIN REG 1unit/0.01ml Soln (100units/ml) SC SCH ×6 (02:24→21:23)
[2021-06-28] MEDS: ACCU-CHEK COMFORT CURVE STRIP VI SCH ×6 (02:25→21:22)
[2021-06-28 05:00] VITALS: BP 101/56
[2021-06-28 06:32] LABS: Potassium 3.8 mmol/L (3.5-5.1)
[2021-06-28 06:38] LABS: Albumin 2.3 g/dL (3.4-5.0); BUN/Creatinine Ratio 23.4; Bilirubin, Total 0.2 mg/dL (0.2-1.0); Calcium 7.7 mg/dL (8.5-10.1); Magnesium 2.7 mg/dL (1.6-2.6); Phosphorus 2.4 mg/dL (2.5-4.90); Pre Albumin 18.5 mg/dL (20.0-40.0)
[2021-06-28 09:00] VITALS: BP 110/65
[2021-06-28] MEDS ORDERED: POTASSIUM PHOSPHATE 22 MEQ in SODIUM CHL 0.9% 100 ML IV ONE (09:00)
[2021-06-28] MEDS: FAMOTIDINE (10MG/ML) 2ML VL IV SCH (09:50)
[2021-06-28] MEDS: CARVEDILOL 3.125 MG TAB PO SCH ×2 (09:51→21:21)
[2021-06-28] MEDS: SACUBITRIL-VALSARTAN 24mg/26mg TAB PO SCH ×2 (09:51→21:16)
[2021-06-28] MEDS: CLOPIDOGREL BISULFATE 75 MG TAB PO SCH (09:51)
[2021-06-28] MEDS: ASPirin-EC 81 mg tab PO SCH (09:51)
[2021-06-28] MEDS: SODIUM CHLOR 0.9% PF (SALINE LOCK) 10ML VIAL/SYR IV SCH ×2 (09:54→21:21)
[2021-06-28] MEDS: ERTAPENEM SOD INJ 1 GM in SODIUM CHL 0.9% 50 ML IV SCH (12:30)
[2021-06-28 13:00] VITALS: BP 102/62
[2021-06-28 17:00] VITALS: BP 107/60
[2021-06-28] MEDS: TPN PER PHARMACY IV NR ×10 (19:51)
[2021-06-28] MEDS: PANTOPRAZOLE 40 MG/10 ML VIAL INJ IV SCH (21:13)
[2021-06-28] MEDS: ATORVASTATIN 20 MG TAB PO SCH (21:17)
[2021-06-28 21:46] VITALS: BP 94/60
[2021-06-29] MEDS: InsuLIN REG 1unit/0.01ml Soln (100units/ml) SC SCH ×6 (02:13→22:02)
[2021-06-29] MEDS: ACCU-CHEK COMFORT CURVE STRIP VI SCH ×6 (02:16→22:05)
[2021-06-29 05:00] VITALS: BP 91/53
[2021-06-29 06:04] LABS: Potassium 3.7 mmol/L (3.5-5.1)
[2021-06-29 06:11] LABS: Albumin 2.4 g/dL (3.4-5.0); BUN/Creatinine Ratio 23.2; Bilirubin, Total 0.3 mg/dL (0.2-1.0); Calcium 8.3 mg/dL (8.5-10.1); Magnesium 2.6 mg/dL (1.6-2.6); Phosphorus 3.3 mg/dL (2.5-4.90); Total Protein 6.9 g/dL (6.4-8.2)
[2021-06-29 08:51] VITALS: BP 94/53
[2021-06-29] MEDS: CARVEDILOL 3.125 MG TAB PO SCH ×2 (10:00→22:04)
[2021-06-29] MEDS: ASPirin-EC 81 mg tab PO SCH (10:24)
[2021-06-29] MEDS: SODIUM CHLOR 0.9% PF (SALINE LOCK) 10ML VIAL/SYR IV SCH ×2 (10:24→22:04)
[2021-06-29] MEDS: CLOPIDOGREL BISULFATE 75 MG TAB PO SCH (10:24)
[2021-06-29] MEDS: SACUBITRIL-VALSARTAN 24mg/26mg TAB PO SCH ×2 (10:24→22:05)
[2021-06-29] MEDS: PANTOPRAZOLE 40 MG/10 ML VIAL INJ IV SCH ×2 (10:24→22:04)
[2021-06-29] MEDS: ERTAPENEM SOD INJ 1 GM in SODIUM CHL 0.9% 50 ML IV SCH (10:33)
[2021-06-29 13:00] VITALS: BP 105/57
[2021-06-29 17:00] VITALS: BP 88/53
[2021-06-29 17:40] VITALS: BP 110/64
[2021-06-29] MEDS: TPN PER PHARMACY IV NR ×18 (19:56→20:20)
[2021-06-29 21:40] VITALS: BP 102/57
[2021-06-29] MEDS: ATORVASTATIN 20 MG TAB PO SCH (22:05)
[2021-06-30] MEDS: ACCU-CHEK COMFORT CURVE STRIP VI SCH ×6 (02:00→22:05)
[2021-06-30] MEDS: InsuLIN REG 1unit/0.01ml Soln (100units/ml) SC SCH ×6 (02:00→22:01)
[2021-06-30 05:00] VITALS: BP 103/57
[2021-06-30 07:42] LABS: Potassium 4.7 mmol/L (3.5-5.1)
[2021-06-30 07:53] LABS: Albumin 2.4 g/dL (3.4-5.0); BUN/Creatinine Ratio 22.1; Bilirubin, Total 0.4 mg/dL (0.2-1.0); Calcium 8.3 mg/dL (8.5-10.1); Phosphorus 2.4 mg/dL (2.5-4.90); Total Protein 6.4 g/dL (6.4-8.2)
[2021-06-30 09:00] VITALS: BP 112/70
[2021-06-30] MEDS: ASPirin-EC 81 mg tab PO SCH (10:04)
[2021-06-30] MEDS: ERTAPENEM SOD INJ 1 GM in SODIUM CHL 0.9% 50 ML IV SCH (10:04)
[2021-06-30] MEDS: PANTOPRAZOLE 40 MG/10 ML VIAL INJ IV SCH ×2 (10:05→21:55)
[2021-06-30] MEDS: SACUBITRIL-VALSARTAN 24mg/26mg TAB PO SCH ×2 (10:05→21:37)
[2021-06-30] MEDS: CLOPIDOGREL BISULFATE 75 MG TAB PO SCH (10:05)
[2021-06-30] MEDS: SODIUM CHLOR 0.9% PF (SALINE LOCK) 10ML VIAL/SYR IV SCH ×2 (10:16→21:55)
[2021-06-30] MEDS: CARVEDILOL 3.125 MG TAB PO SCH ×2 (10:18→21:32)
[2021-06-30 13:00] VITALS: BP 95/45
[2021-06-30 17:00] VITALS: BP 96/56
[2021-06-30] MEDS: TPN PER PHARMACY IV NR ×26 (19:54→21:05)
[2021-06-30] MEDS: ATORVASTATIN 20 MG TAB PO SCH (21:55)
[2021-07-01] MEDS: InsuLIN REG 1unit/0.01ml Soln (100units/ml) SC SCH ×6 (03:08→22:42)
[2021-07-01] MEDS: ACCU-CHEK COMFORT CURVE STRIP VI SCH ×6 (03:18→22:41)
[2021-07-01 05:00] VITALS: BP 97/53
[2021-07-01 06:12] LABS: Albumin 2.6 g/dL (3.4-5.0); BUN/Creatinine Ratio 23.5; Calcium 8.8 mg/dL (8.5-10.1); Magnesium 2.2 mg/dL (1.6-2.6); Potassium 4.4 mmol/L (3.5-5.1)
[2021-07-01 06:15] LABS: Bilirubin, Total 0.4 mg/dL (0.2-1.0); Phosphorus 2.7 mg/dL (2.5-4.90); Total Protein 6.7 g/dL (6.4-8.2)
[2021-07-01 08:00] VITALS: BP 100/63
[2021-07-01 08:30] VITALS: BP 100/63
[2021-07-01] MEDS ORDERED: IOTHALAMATE MEGLUMINE INJ 250ML BOT UR ONE (09:17)
[2021-07-01] MEDS: CARVEDILOL 3.125 MG TAB PO SCH ×2 (10:00→22:00)
[2021-07-01] MEDS: SACUBITRIL-VALSARTAN 24mg/26mg TAB PO SCH ×2 (10:11→22:00)
[2021-07-01] MEDS: ERTAPENEM SOD INJ 1 GM in SODIUM CHL 0.9% 50 ML IV SCH (10:11)
[2021-07-01] MEDS: PANTOPRAZOLE 40 MG/10 ML VIAL INJ IV SCH ×2 (10:11→22:40)
[2021-07-01] MEDS: CLOPIDOGREL BISULFATE 75 MG TAB PO SCH (10:11)
[2021-07-01] MEDS: ASPirin-EC 81 mg tab PO SCH (10:11)
[2021-07-01] MEDS: SODIUM CHLOR 0.9% PF (SALINE LOCK) 10ML VIAL/SYR IV SCH ×2 (10:13→22:40)
[2021-07-01 13:25] VITALS: BP 96/51
[2021-07-01 17:00] VITALS: BP 99/60
[2021-07-01] MEDS ORDERED: TPN PER PHARMACY IV NR ×9 (20:00)
[2021-07-01 22:25] VITALS: BP 97/54
[2021-07-01] MEDS: ATORVASTATIN 20 MG TAB PO SCH (22:40)
[2021-07-02] MEDS: ACCU-CHEK COMFORT CURVE STRIP VI SCH ×6 (01:41→22:34)
[2021-07-02] MEDS: InsuLIN REG 1unit/0.01ml Soln (100units/ml) SC SCH ×6 (01:43→22:35)
[2021-07-02 05:24] VITALS: BP 96/42
[2021-07-02 07:08] LABS: Potassium 4.3 mmol/L (3.5-5.1)
[2021-07-02 07:15] LABS: Albumin 2.5 g/dL (3.4-5.0); BUN/Creatinine Ratio 24.4; Bilirubin, Total 0.4 mg/dL (0.2-1.0); Calcium 8.5 mg/dL (8.5-10.1); Magnesium 2.6 mg/dL (1.6-2.6); Phosphorus 3.1 mg/dL (2.5-4.90); Total Protein 6.5 g/dL (6.4-8.2)
[2021-07-02 08:00] VITALS: BP 100/52
[2021-07-02 08:30] VITALS: BP 100/52
[2021-07-02] MEDS ORDERED: OMNIPAQUE ORAL SOLN 500ml 12mg/ml PO ONE (08:42)
[2021-07-02] MEDS: ASPirin-EC 81 mg tab PO SCH (09:15)
[2021-07-02] MEDS: CLOPIDOGREL BISULFATE 75 MG TAB PO SCH (09:15)
[2021-07-02] MEDS: PANTOPRAZOLE 40 MG/10 ML VIAL INJ IV SCH ×2 (09:15→22:33)
[2021-07-02] MEDS: SODIUM CHLOR 0.9% PF (SALINE LOCK) 10ML VIAL/SYR IV SCH ×2 (09:17→22:33)
[2021-07-02] MEDS: ERTAPENEM SOD INJ 1 GM in SODIUM CHL 0.9% 50 ML IV SCH (09:17)
[2021-07-02] MEDS: CARVEDILOL 3.125 MG TAB PO SCH ×2 (09:26→22:33)
[2021-07-02] MEDS: SACUBITRIL-VALSARTAN 24mg/26mg TAB PO SCH ×2 (11:13→22:34)
[2021-07-02 16:46] VITALS: BP 100/52
[2021-07-02] MEDS ORDERED: POTASSIUM PHOSPHATE IV NR ×9 (20:00)
[2021-07-02] MEDS ORDERED: SODIUM PHOSPHATES IV NR ×9 (20:00)
[2021-07-02] MEDS ORDERED: [UNRECOGNIZED DRUG - OTHER] IV NR ×9 (20:00)
[2021-07-02] MEDS ORDERED: SODIUM CHLORIDE IV NR ×9 (20:00)
[2021-07-02 22:00] VITALS: BP 111/70
[2021-07-02] MEDS: ATORVASTATIN 20 MG TAB PO SCH (22:34)
[2021-07-03] VITALS (7 sets, daily range): BP systolic 87–140; BP diastolic 56–80
[2021-07-03] MEDS: ACCU-CHEK COMFORT CURVE STRIP VI SCH ×6 (02:45→22:29)
[2021-07-03] MEDS: InsuLIN REG 1unit/0.01ml Soln (100units/ml) SC SCH ×6 (02:48→22:29)
[2021-07-03 06:34] LABS: Potassium 3.5 mmol/L (3.5-5.1)
[2021-07-03 06:43] LABS: Albumin 2.4 g/dL (3.4-5.0); BUN/Creatinine Ratio 27.7; Bilirubin, Total 0.3 mg/dL (0.2-1.0); Calcium 8.1 mg/dL (8.5-10.1); Magnesium 2.4 mg/dL (1.6-2.6); Total Protein 6.2 g/dL (6.4-8.2)
[2021-07-03] MEDS: PANTOPRAZOLE 40 MG/10 ML VIAL INJ IV SCH ×2 (09:46→22:26)
[2021-07-03] MEDS: ASPirin-EC 81 mg tab PO SCH (09:47)
[2021-07-03] MEDS: SACUBITRIL-VALSARTAN 24mg/26mg TAB PO SCH ×2 (09:47→22:35)
[2021-07-03] MEDS: CLOPIDOGREL BISULFATE 75 MG TAB PO SCH (09:47)
[2021-07-03] MEDS: SODIUM CHLOR 0.9% PF (SALINE LOCK) 10ML VIAL/SYR IV SCH ×2 (09:47→22:38)
[2021-07-03] MEDS: CARVEDILOL 3.125 MG TAB PO SCH ×2 (09:48→22:27)
[2021-07-03] MEDS ORDERED: POTASSIUM CHL 20MEQ/100ML 100 ML IV ONE (10:00)
[2021-07-03] MEDS: ERTAPENEM SOD INJ 1 GM in SODIUM CHL 0.9% 50 ML IV SCH (15:18)
[2021-07-03] MEDS ORDERED: TPN PER PHARMACY IV NR ×12 (20:00)
[2021-07-03] MEDS: ATORVASTATIN 20 MG TAB PO SCH (22:28)
[2021-07-04] VITALS (7 sets, daily range): BP systolic 101–131; BP diastolic 60–74
[2021-07-04] MEDS: InsuLIN REG 1unit/0.01ml Soln (100units/ml) SC SCH ×6 (02:08→21:54)
[2021-07-04] MEDS: ACCU-CHEK COMFORT CURVE STRIP VI SCH ×6 (02:22→22:03)
[2021-07-04 05:58] LABS: Albumin 2.5 g/dL (3.4-5.0); Calcium 8.6 mg/dL (8.5-10.1); Magnesium 1.9 mg/dL (1.6-2.6); Potassium 4.4 mmol/L (3.5-5.1)
[2021-07-04 06:00] LABS: BUN/Creatinine Ratio 24.7
[2021-07-04 06:02] LABS: Bilirubin, Total 0.4 mg/dL (0.2-1.0); Phosphorus 3.1 mg/dL (2.5-4.90); Total Protein 6.5 g/dL (6.4-8.2)
[2021-07-04] MEDS: ERTAPENEM SOD INJ 1 GM in SODIUM CHL 0.9% 50 ML IV SCH (09:47)
[2021-07-04] MEDS: PANTOPRAZOLE 40 MG/10 ML VIAL INJ IV SCH ×2 (09:48→21:56)
[2021-07-04] MEDS: SACUBITRIL-VALSARTAN 24mg/26mg TAB PO SCH ×2 (09:48→21:58)
[2021-07-04] MEDS: ASPirin-EC 81 mg tab PO SCH (09:48)
[2021-07-04] MEDS: CLOPIDOGREL BISULFATE 75 MG TAB PO SCH (09:48)
[2021-07-04] MEDS: CARVEDILOL 3.125 MG TAB PO SCH ×2 (09:49→22:00)
[2021-07-04] MEDS: SODIUM CHLOR 0.9% PF (SALINE LOCK) 10ML VIAL/SYR IV SCH ×2 (10:04→22:03)
[2021-07-04] MEDS ORDERED: POTASSIUM PHOSPHATE IV NR ×10 (20:00)
[2021-07-04] MEDS ORDERED: SODIUM PHOSPHATES IV NR ×10 (20:00)
[2021-07-04] MEDS ORDERED: SODIUM CHLORIDE IV NR ×10 (20:00)
[2021-07-04] MEDS ORDERED: [UNRECOGNIZED DRUG - OTHER] IV NR ×10 (20:00)
[2021-07-04] MEDS: ATORVASTATIN 20 MG TAB PO SCH (21:57)
[2021-07-05] MEDS: ACCU-CHEK COMFORT CURVE STRIP VI SCH ×6 (01:43→22:00)
[2021-07-05] MEDS: InsuLIN REG 1unit/0.01ml Soln (100units/ml) SC SCH ×6 (01:44→22:51)
[2021-07-05 05:24] VITALS: BP 97/66
[2021-07-05 07:14] LABS: Calcium 8.9 mg/dL (8.5-10.1); Magnesium 2.6 mg/dL (1.6-2.6)
[2021-07-05 07:22] LABS: Bilirubin, Total 0.6 mg/dL (0.2-1.0); Phosphorus 3.5 mg/dL (2.5-4.90); Total Protein 7.3 g/dL (6.4-8.2)
[2021-07-05] MEDS ORDERED: OMNIPAQUE ORAL SOLN 500ml 12mg/ml PO ONE (08:22)
[2021-07-05 08:30] VITALS: BP 97/64
[2021-07-05] MEDS: CARVEDILOL 3.125 MG TAB PO SCH ×2 (08:34→22:35)
[2021-07-05] MEDS: ASPirin-EC 81 mg tab PO SCH (08:54)
[2021-07-05] MEDS: CLOPIDOGREL BISULFATE 75 MG TAB PO SCH (08:54)
[2021-07-05] MEDS: SACUBITRIL-VALSARTAN 24mg/26mg TAB PO SCH ×2 (08:55→22:45)
[2021-07-05] MEDS: PANTOPRAZOLE 40 MG/10 ML VIAL INJ IV SCH ×2 (08:55→22:34)
[2021-07-05] MEDS: ERTAPENEM SOD INJ 1 GM in SODIUM CHL 0.9% 50 ML IV SCH (08:56)
[2021-07-05] MEDS: SODIUM CHLOR 0.9% PF (SALINE LOCK) 10ML VIAL/SYR IV SCH ×2 (09:01→22:34)
[2021-07-05 13:30] VITALS: BP 103/63
[2021-07-05 16:50] VITALS: BP 103/60
[2021-07-05 20:00] VITALS: BP 103/61
[2021-07-05] MEDS ORDERED: TPN PER PHARMACY IV NR ×10 (20:00)
[2021-07-05 22:24] VITALS: BP 103/61
[2021-07-05] MEDS: ATORVASTATIN 20 MG TAB PO SCH (22:45)
[2021-07-06] MEDS: ACCU-CHEK COMFORT CURVE STRIP VI SCH ×6 (02:19→21:25)
[2021-07-06] MEDS: InsuLIN REG 1unit/0.01ml Soln (100units/ml) SC SCH ×7 (02:27→21:00)
[2021-07-06 05:00] VITALS: BP 92/50
[2021-07-06 05:49] LABS: Potassium 4.8 mmol/L (3.5-5.1)
[2021-07-06 05:56] LABS: Albumin 2.7 g/dL (3.4-5.0); BUN/Creatinine Ratio 27.5; Bilirubin, Total 0.8 mg/dL (0.2-1.0); Calcium 8.7 mg/dL (8.5-10.1); Magnesium 2.5 mg/dL (1.6-2.6); Phosphorus 2.7 mg/dL (2.5-4.90); Total Protein 6.7 g/dL (6.4-8.2)
[2021-07-06 09:00] VITALS: BP 98/57
[2021-07-06] MEDS: SACUBITRIL-VALSARTAN 24mg/26mg TAB PO SCH ×2 (09:55→21:25)
[2021-07-06] MEDS: ERTAPENEM SOD INJ 1 GM in SODIUM CHL 0.9% 50 ML IV SCH (09:55)
[2021-07-06] MEDS: CARVEDILOL 3.125 MG TAB PO SCH ×2 (09:56→21:26)
[2021-07-06] MEDS: SODIUM CHLOR 0.9% PF (SALINE LOCK) 10ML VIAL/SYR IV SCH ×2 (09:56→21:25)
[2021-07-06] MEDS: ASPirin-EC 81 mg tab PO SCH (09:56)
[2021-07-06] MEDS: PANTOPRAZOLE 40 MG/10 ML VIAL INJ IV SCH (09:56)
[2021-07-06] MEDS: CLOPIDOGREL BISULFATE 75 MG TAB PO SCH (09:56)
[2021-07-06 13:00] VITALS: BP 111/73
[2021-07-06 17:00] VITALS: BP 107/64
[2021-07-06] MEDS ORDERED: TPN PER PHARMACY IV NR ×9 (20:00)
[2021-07-06] MEDS: ATORVASTATIN 20 MG TAB PO SCH (21:24)
[2021-07-06 22:07] VITALS: BP 98/62
[2021-07-07] MEDS: InsuLIN REG 1unit/0.01ml Soln (100units/ml) SC SCH ×6 (01:00→21:58)
[2021-07-07] MEDS: ACCU-CHEK COMFORT CURVE STRIP VI SCH ×6 (01:00→21:55)
[2021-07-07 05:12] VITALS: BP 88/51
[2021-07-07 07:01] LABS: Albumin 2.5 g/dL (3.4-5.0); Calcium 8.3 mg/dL (8.5-10.1); Magnesium 2.2 mg/dL (1.6-2.6); Potassium 4.1 mmol/L (3.5-5.1)
[2021-07-07 07:05] LABS: BUN/Creatinine Ratio 24.7; Bilirubin, Total 0.5 mg/dL (0.2-1.0); Phosphorus 2.7 mg/dL (2.5-4.90); Total Protein 6.2 g/dL (6.4-8.2)
[2021-07-07 09:00] VITALS: BP 93/60
[2021-07-07] MEDS: CARVEDILOL 3.125 MG TAB PO SCH ×2 (10:00→21:55)
[2021-07-07] MEDS: PANTOPRAZOLE 40 MG/10 ML VIAL INJ IV SCH (10:29)
[2021-07-07] MEDS: SODIUM CHLOR 0.9% PF (SALINE LOCK) 10ML VIAL/SYR IV SCH ×2 (10:29→21:54)
[2021-07-07] MEDS: SACUBITRIL-VALSARTAN 24mg/26mg TAB PO SCH ×2 (10:31→22:23)
[2021-07-07] MEDS: ASPirin-EC 81 mg tab PO SCH (10:31)
[2021-07-07] MEDS: CLOPIDOGREL BISULFATE 75 MG TAB PO SCH (10:31)
[2021-07-07 12:30] VITALS: BP 107/66
[2021-07-07 17:00] VITALS: BP 107/65
[2021-07-07 17:09] VITALS: BP 107/66
[2021-07-07] MEDS ORDERED: TPN PER PHARMACY IV NR ×9 (20:00)
[2021-07-07 22:00] VITALS: BP 92/53
[2021-07-07] MEDS: ATORVASTATIN 20 MG TAB PO SCH (22:23)
[2021-07-08] MEDS: ACCU-CHEK COMFORT CURVE STRIP VI SCH ×6 (02:05→21:44)
[2021-07-08] MEDS: InsuLIN REG 1unit/0.01ml Soln (100units/ml) SC SCH ×6 (02:07→21:52)
[2021-07-08 05:00] VITALS: BP 98/60
[2021-07-08 06:17] LABS: Albumin 2.6 g/dL (3.4-5.0); Calcium 8.6 mg/dL (8.5-10.1); Magnesium 2.1 mg/dL (1.6-2.6); Potassium 4.2 mmol/L (3.5-5.1)
[2021-07-08 06:22] LABS: Bilirubin, Total 0.8 mg/dL (0.2-1.0); Phosphorus 2.8 mg/dL (2.5-4.90); Total Protein 6.3 g/dL (6.4-8.2)
[2021-07-08 08:00] VITALS: BP 100/67
[2021-07-08] MEDS ORDERED: OMNIPAQUE ORAL SOLN 500ml 12mg/ml PO ONE (09:32)
[2021-07-08] MEDS: CARVEDILOL 3.125 MG TAB PO SCH ×2 (10:00→21:53)
[2021-07-08] MEDS: PANTOPRAZOLE 40 MG/10 ML VIAL INJ IV SCH (10:03)
[2021-07-08] MEDS: SODIUM CHLOR 0.9% PF (SALINE LOCK) 10ML VIAL/SYR IV SCH ×2 (10:03→21:43)
[2021-07-08] MEDS: SACUBITRIL-VALSARTAN 24mg/26mg TAB PO SCH ×2 (10:04→21:54)
[2021-07-08] MEDS: ASPirin-EC 81 mg tab PO SCH (10:04)
[2021-07-08] MEDS: CLOPIDOGREL BISULFATE 75 MG TAB PO SCH (10:04)
[2021-07-08 13:00] VITALS: BP 115/70
[2021-07-08 17:00] VITALS: BP 102/60
[2021-07-08] MEDS ORDERED: TPN PER PHARMACY IV NR ×11 (20:00)
[2021-07-08] MEDS: ONDANSETRON HCL 4 MG/2 ML VIAL IV PRN (20:17)
[2021-07-08] MEDS: ATORVASTATIN 20 MG TAB PO SCH (21:44)
[2021-07-08 22:00] VITALS: BP 109/59
[2021-07-09] MEDS: InsuLIN REG 1unit/0.01ml Soln (100units/ml) SC SCH ×6 (01:52→21:06)
[2021-07-09] MEDS: ACCU-CHEK COMFORT CURVE STRIP VI SCH ×6 (01:53→21:10)
[2021-07-09 05:00] VITALS: BP 117/53
[2021-07-09 05:58] LABS: Albumin 2.4 g/dL (3.4-5.0); Potassium 3.5 mmol/L (3.5-5.1)
[2021-07-09 06:03] LABS: BUN/Creatinine Ratio 27.1; Bilirubin, Total 0.6 mg/dL (0.2-1.0); Calcium 8.2 mg/dL (8.5-10.1); Magnesium 2.3 mg/dL (1.6-2.6); Phosphorus 3.4 mg/dL (2.5-4.90)
[2021-07-09 08:20] VITALS: BP 91/62
[2021-07-09 09:15] VITALS: BP 89/51
[2021-07-09] MEDS: PANTOPRAZOLE 40 MG/10 ML VIAL INJ IV SCH (09:51)
[2021-07-09] MEDS: CARVEDILOL 3.125 MG TAB PO SCH ×2 (09:52→21:48)
[2021-07-09] MEDS: CLOPIDOGREL BISULFATE 75 MG TAB PO SCH (09:52)
[2021-07-09] MEDS: SODIUM CHLOR 0.9% PF (SALINE LOCK) 10ML VIAL/SYR IV SCH ×2 (10:11→21:10)
[2021-07-09] MEDS: SACUBITRIL-VALSARTAN 24mg/26mg TAB PO SCH ×2 (10:18→21:46)
[2021-07-09] MEDS: ASPirin-EC 81 mg tab PO SCH (10:18)
[2021-07-09] MEDS ORDERED: ERTAPENEM SOD INJ 1 GM in SODIUM CHL 0.9% 50 ML IV ONE (12:15)
[2021-07-09 13:19] VITALS: BP 91/62
[2021-07-09] MEDS: ONDANSETRON HCL 4 MG/2 ML VIAL IV PRN (13:31)
[2021-07-09 16:36] VITALS: BP 105/63
[2021-07-09] MEDS ORDERED: TPN PER PHARMACY IV NR ×10 (20:00)
[2021-07-09] MEDS: ATORVASTATIN 20 MG TAB PO SCH (21:48)
[2021-07-09 22:00] VITALS: BP 110/69
[2021-07-10] MEDS: ONDANSETRON HCL 4 MG/2 ML VIAL IV PRN ×3 (00:45→22:43)
[2021-07-10] MEDS: InsuLIN REG 1unit/0.01ml Soln (100units/ml) SC SCH ×6 (01:08→22:42)
[2021-07-10] MEDS: ACCU-CHEK COMFORT CURVE STRIP VI SCH ×6 (01:08→22:39)
[2021-07-10 05:00] VITALS: BP 103/54
[2021-07-10] MEDS: diphenhdrAMINE HCL 50 MG/1 ML VL IV PRN (05:33)
[2021-07-10 06:24] LABS: Potassium 3.7 mmol/L (3.5-5.1)
[2021-07-10 06:36] LABS: Albumin 2.4 g/dL (3.4-5.0); BUN/Creatinine Ratio 26.4; Bilirubin, Total 0.8 mg/dL (0.2-1.0); Magnesium 1.7 mg/dL (1.6-2.6); Phosphorus 2.8 mg/dL (2.5-4.90); Total Protein 6.1 g/dL (6.4-8.2)
[2021-07-10 08:00] VITALS: BP 95/49
[2021-07-10] MEDS: ERTAPENEM SOD INJ 1 GM in SODIUM CHL 0.9% 50 ML IV SCH (09:08)
[2021-07-10] MEDS: PANTOPRAZOLE 40 MG/10 ML VIAL INJ IV SCH (09:08)
[2021-07-10] MEDS: CLOPIDOGREL BISULFATE 75 MG TAB PO SCH (09:10)
[2021-07-10] MEDS: SODIUM CHLOR 0.9% PF (SALINE LOCK) 10ML VIAL/SYR IV SCH ×2 (09:11→22:40)
[2021-07-10] MEDS: ASPirin-EC 81 mg tab PO SCH (09:11)
[2021-07-10 09:53] VITALS: BP 95/49
[2021-07-10] MEDS: CARVEDILOL 3.125 MG TAB PO SCH ×2 (10:08→22:00)
[2021-07-10] MEDS: SACUBITRIL-VALSARTAN 24mg/26mg TAB PO SCH ×2 (10:08→22:40)
[2021-07-10 14:29] VITALS: BP 101/58
[2021-07-10 16:49] VITALS: BP 104/65
[2021-07-10] MEDS ORDERED: TPN PER PHARMACY IV NR ×10 (20:00)
[2021-07-10 22:00] VITALS: BP 116/67
[2021-07-10] MEDS: ATORVASTATIN 20 MG TAB PO SCH (22:39)
[2021-07-11] MEDS: InsuLIN REG 1unit/0.01ml Soln (100units/ml) SC SCH ×6 (01:37→22:44)
[2021-07-11] MEDS: ACCU-CHEK COMFORT CURVE STRIP VI SCH ×6 (02:00→22:42)
[2021-07-11 05:00] VITALS: BP 105/63
[2021-07-11 05:41] LABS: Albumin 2.5 g/dL (3.4-5.0); Calcium 8.3 mg/dL (8.5-10.1); Magnesium 2.4 mg/dL (1.6-2.6); Potassium 3.8 mmol/L (3.5-5.1)
[2021-07-11 05:45] LABS: BUN/Creatinine Ratio 22.4; Bilirubin, Total 0.9 mg/dL (0.2-1.0); Phosphorus 2.7 mg/dL (2.5-4.90); Total Protein 6.3 g/dL (6.4-8.2)
[2021-07-11] MEDS: CARVEDILOL 3.125 MG TAB PO SCH ×2 (09:04→22:41)
[2021-07-11] MEDS: ERTAPENEM SOD INJ 1 GM in SODIUM CHL 0.9% 50 ML IV SCH (09:04)
[2021-07-11] MEDS: PANTOPRAZOLE 40 MG/10 ML VIAL INJ IV SCH (09:04)
[2021-07-11] MEDS: CLOPIDOGREL BISULFATE 75 MG TAB PO SCH (09:05)
[2021-07-11] MEDS: ASPirin-EC 81 mg tab PO SCH (09:05)
[2021-07-11] MEDS: SACUBITRIL-VALSARTAN 24mg/26mg TAB PO SCH ×2 (09:05→22:42)
[2021-07-11 09:49] VITALS: BP 108/72
[2021-07-11] MEDS: SODIUM CHLOR 0.9% PF (SALINE LOCK) 10ML VIAL/SYR IV SCH ×2 (10:00→22:40)
[2021-07-11] MEDS: ONDANSETRON HCL 4 MG/2 ML VIAL IV PRN ×2 (11:29→23:15)
[2021-07-11 13:00] VITALS: BP 142/75
[2021-07-11 17:11] VITALS: BP 122/74
[2021-07-11] MEDS ORDERED: TPN PER PHARMACY IV NR ×10 (20:00)
[2021-07-11 22:14] VITALS: BP 105/64
[2021-07-11] MEDS: ATORVASTATIN 20 MG TAB PO SCH (22:42)
[2021-07-12 05:00] VITALS: BP 91/55
[2021-07-12] MEDS: ACCU-CHEK COMFORT CURVE STRIP VI SCH ×5 (06:55→22:16)
[2021-07-12] MEDS: InsuLIN REG 1unit/0.01ml Soln (100units/ml) SC SCH ×4 (06:55→22:17)
[2021-07-12] MEDS: diphenhdrAMINE HCL 50 MG/1 ML VL IV PRN (07:59)
[2021-07-12 09:00] VITALS: BP 99/66
[2021-07-12] MEDS: PANTOPRAZOLE 40 MG/10 ML VIAL INJ IV SCH (09:46)
[2021-07-12] MEDS: SODIUM CHLOR 0.9% PF (SALINE LOCK) 10ML VIAL/SYR IV SCH ×2 (09:46→22:11)
[2021-07-12] MEDS: SACUBITRIL-VALSARTAN 24mg/26mg TAB PO SCH ×2 (09:47→22:15)
[2021-07-12] MEDS: CLOPIDOGREL BISULFATE 75 MG TAB PO SCH (09:47)
[2021-07-12] MEDS: ASPirin-EC 81 mg tab PO SCH (09:47)
[2021-07-12] MEDS: CARVEDILOL 3.125 MG TAB PO SCH ×2 (10:00→22:15)
[2021-07-12] MEDS: ERTAPENEM SOD INJ 1 GM in SODIUM CHL 0.9% 50 ML IV SCH (10:00)
[2021-07-12 12:31] LABS: Calcium 8.2 mg/dL (8.5-10.1); Potassium 4.1 mmol/L (3.5-5.1)
[2021-07-12 12:36] LABS: Albumin 2.4 g/dL (3.4-5.0); BUN/Creatinine Ratio 23.2; Bilirubin, Total 0.8 mg/dL (0.2-1.0); Magnesium 2.7 mg/dL (1.6-2.6); Phosphorus 2.7 mg/dL (2.5-4.90); Total Protein 6.1 g/dL (6.4-8.2)
[2021-07-12 12:43] LABS: Pre Albumin 24.1 mg/dL (20.0-40.0)
[2021-07-12 13:00] VITALS: BP 101/57
[2021-07-12 17:00] VITALS: BP 96/62
[2021-07-12] MEDS: TPN PER PHARMACY IV NR ×10 (22:09)
[2021-07-12] MEDS: ATORVASTATIN 20 MG TAB PO SCH (22:15)
[2021-07-12] MEDS: ONDANSETRON HCL 4 MG/2 ML VIAL IV PRN (22:18)
[2021-07-12 22:20] VITALS: BP 100/69
[2021-07-13 05:27] VITALS: BP 104/73
[2021-07-13] MEDS: ACCU-CHEK COMFORT CURVE STRIP VI SCH ×5 (06:15→21:23)
[2021-07-13] MEDS: InsuLIN REG 1unit/0.01ml Soln (100units/ml) SC SCH ×5 (06:17→22:00)
[2021-07-13 06:20] LABS: Calcium 8.3 mg/dL (8.5-10.1)
[2021-07-13 06:23] LABS: Albumin 2.3 g/dL (3.4-5.0); BUN/Creatinine Ratio 27.6; Magnesium 2.4 mg/dL (1.6-2.6)
[2021-07-13 06:52] LABS: Bilirubin, Total 0.8 mg/dL (0.2-1.0); Phosphorus 3.4 mg/dL (2.5-4.90); Total Protein 5.8 g/dL (6.4-8.2)
[2021-07-13 09:00] VITALS: BP 101/55
[2021-07-13] MEDS: PANTOPRAZOLE 40 MG/10 ML VIAL INJ IV SCH (10:09)
[2021-07-13] MEDS: SACUBITRIL-VALSARTAN 24mg/26mg TAB PO SCH ×2 (10:10→21:23)
[2021-07-13] MEDS: ERTAPENEM SOD INJ 1 GM in SODIUM CHL 0.9% 50 ML IV SCH (10:10)
[2021-07-13] MEDS: CARVEDILOL 3.125 MG TAB PO SCH ×2 (10:10→21:22)
[2021-07-13] MEDS: SODIUM CHLOR 0.9% PF (SALINE LOCK) 10ML VIAL/SYR IV SCH ×2 (10:11→21:21)
[2021-07-13 11:59] LABS: INR 2.02 (0.9-1.15); Partial Thromboplastin Time 30.9 sec (23.6-33.0)
[2021-07-13 13:00] VITALS: BP 108/65
[2021-07-13] MEDS: HEPARIN DRIP/D5W 100UNITS/ML 250 ML IV SCH ×2 (14:10→20:00)
[2021-07-13] MEDS: ONDANSETRON HCL 4 MG/2 ML VIAL IV PRN ×2 (14:18→21:24)
[2021-07-13 17:01] VITALS: BP 101/59
[2021-07-13 19:55] LABS: INR 1.87 (0.9-1.15); Partial Thromboplastin Time 49.8 sec (23.6-33.0)
[2021-07-13] MEDS: TPN PER PHARMACY IV NR ×10 (19:58)
[2021-07-13] MEDS ORDERED: TPN PER PHARMACY IV NR ×9 (20:00)
[2021-07-13] MEDS: ATORVASTATIN 20 MG TAB PO SCH (21:23)
[2021-07-13 22:00] VITALS: BP_SYST 124; BP_SYST 132; BP_DIAS 71; BP_DIAS 91
[2021-07-14] MEDS: InsuLIN REG 1unit/0.01ml Soln (100units/ml) SC SCH ×6 (02:00→22:00)
[2021-07-14] MEDS: diphenhdrAMINE HCL 50 MG/1 ML VL IV PRN (02:01)
[2021-07-14] MEDS: ACCU-CHEK COMFORT CURVE STRIP VI SCH ×6 (03:24→22:00)
[2021-07-14 04:52] VITALS: BP 96/59
[2021-07-14 05:01] LABS: Albumin 2.4 g/dL (3.4-5.0); Calcium 8.2 mg/dL (8.5-10.1); Magnesium 1.8 mg/dL (1.6-2.6); Potassium 4.2 mmol/L (3.5-5.1)
[2021-07-14 05:09] LABS: Bilirubin, Total 0.9 mg/dL (0.2-1.0); Phosphorus 3.3 mg/dL (2.5-4.90); Total Protein 6.2 g/dL (6.4-8.2)
[2021-07-14 06:15] LABS: INR 1.92 (0.9-1.15)
[2021-07-14 06:23] LABS: Partial Thromboplastin Time 76.8 sec (23.6-33.0)
[2021-07-14] MEDS: HEPARIN DRIP/D5W 100UNITS/ML 250 ML IV SCH ×2 (06:26→17:56)
[2021-07-14] MEDS: CARVEDILOL 3.125 MG TAB PO SCH ×2 (08:47→23:03)
[2021-07-14 09:00] VITALS: BP 98/55
[2021-07-14] MEDS: SODIUM CHLOR 0.9% PF (SALINE LOCK) 10ML VIAL/SYR IV SCH ×2 (09:03→22:00)
[2021-07-14] MEDS: PANTOPRAZOLE 40 MG/10 ML VIAL INJ IV SCH (09:03)
[2021-07-14] MEDS: ERTAPENEM SOD INJ 1 GM in SODIUM CHL 0.9% 50 ML IV SCH (09:03)
[2021-07-14] MEDS: SACUBITRIL-VALSARTAN 24mg/26mg TAB PO SCH ×2 (09:04→23:02)
[2021-07-14 13:00] VITALS: BP 102/64
[2021-07-14 13:30] LABS: INR 1.88 (0.9-1.15)
[2021-07-14 13:48] LABS: Partial Thromboplastin Time 75.8 sec (23.6-33.0)
[2021-07-14 17:00] VITALS: BP 105/64
[2021-07-14 19:57] LABS: INR 1.91 (0.9-1.15); Partial Thromboplastin Time 59.3 sec (23.6-33.0)
[2021-07-14] MEDS ORDERED: TPN PER PHARMACY IV NR ×9 (20:00)
[2021-07-14 22:00] VITALS: BP 106/60
[2021-07-14] MEDS: ATORVASTATIN 20 MG TAB PO SCH (23:01)
[2021-07-15] MEDS: InsuLIN REG 1unit/0.01ml Soln (100units/ml) SC SCH ×6 (02:25→22:31)
[2021-07-15] MEDS: ACCU-CHEK COMFORT CURVE STRIP VI SCH ×6 (02:26→22:00)
[2021-07-15 05:00] VITALS: BP 90/61
[2021-07-15 06:54] LABS: Basophils # (auto) 0.1 10 ^3/uL (0-0.2); Eosinophils # (auto) 0.3 10 ^3/uL (0-0.8); Eosinophils % (auto) 5.6 % (0.0-7.0); Hematocrit 39.8 % (41.0-53.0); Hemoglobin 13.5 g/dL (13.5-17.5); Lymphocytes # (auto) 1.6 10 ^3/uL (0.4-5.4); Lymphocytes % (auto) 28.1 % (10.0-50.0); Mean Corpuscular Hemoglobin 29.6 pg (28.0-32.0); Mean Corpuscular Volume 87.3 fL (80.0-100.0); Monocytes # (auto) 0.7 10 ^3/uL (0-1.3); Monocytes % (auto) 11.9 % (0.0-12.0); Neutrophils % (auto) 53.4 % (37.0-80.0); Red Blood Cells 4.56 10^6/uL (4.5-5.90); Red Cell Distribution Width 11.8 % (11.8-14.3); White Blood Cell 5.6 10^3/uL (4.4-10.8)
[2021-07-15 07:24] LABS: Potassium 3.7 mmol/L (3.5-5.1)
[2021-07-15 07:38] LABS: Albumin 2.3 g/dL (3.4-5.0); BUN/Creatinine Ratio 22.4; Bilirubin, Total 0.9 mg/dL (0.2-1.0); Magnesium 2.7 mg/dL (1.6-2.6); Phosphorus 3.3 mg/dL (2.5-4.90); Total Protein 5.9 g/dL (6.4-8.2)
[2021-07-15 08:00] VITALS: BP 91/60
[2021-07-15] MEDS: PANTOPRAZOLE 40 MG/10 ML VIAL INJ IV SCH (09:45)
[2021-07-15] MEDS: ERTAPENEM SOD INJ 1 GM in SODIUM CHL 0.9% 50 ML IV SCH (09:45)
[2021-07-15] MEDS: SACUBITRIL-VALSARTAN 24mg/26mg TAB PO SCH ×2 (09:46→22:40)
[2021-07-15] MEDS: CARVEDILOL 3.125 MG TAB PO SCH ×2 (09:47→22:00)
[2021-07-15] MEDS: SODIUM CHLOR 0.9% PF (SALINE LOCK) 10ML VIAL/SYR IV SCH ×2 (09:47→22:00)
[2021-07-15 10:04] LABS: INR 2.12 (0.9-1.15)
[2021-07-15] MEDS: ONDANSETRON HCL 4 MG/2 ML VIAL IV PRN ×2 (12:26→22:39)
[2021-07-15 13:00] VITALS: BP 98/57
[2021-07-15 15:25] LABS: INR 1.95 (0.9-1.15); Partial Thromboplastin Time 56.2 sec (23.6-33.0)
[2021-07-15 17:00] VITALS: BP 106/63
[2021-07-15] MEDS ORDERED: [UNRECOGNIZED DRUG - OTHER] IV NR ×9 (20:00)
[2021-07-15] MEDS ORDERED: SODIUM CHLORIDE IV NR ×9 (20:00)
[2021-07-15] MEDS ORDERED: POTASSIUM CHLORIDE IV NR ×9 (20:00)
[2021-07-15] MEDS ORDERED: SODIUM PHOSPHATES IV NR ×9 (20:00)
[2021-07-15 22:00] VITALS: BP 99/63
[2021-07-16] MEDS: ACCU-CHEK COMFORT CURVE STRIP VI SCH ×6 (01:39→21:38)
[2021-07-16] MEDS: InsuLIN REG 1unit/0.01ml Soln (100units/ml) SC SCH ×6 (01:39→21:47)
[2021-07-16 05:00] VITALS: BP 100/58
[2021-07-16 06:08] LABS: INR 2.01 (0.9-1.15); Partial Thromboplastin Time 58.3 sec (23.6-33.0)
[2021-07-16 06:14] LABS: Calcium 8.2 mg/dL (8.5-10.1); Potassium 3.6 mmol/L (3.5-5.1)
[2021-07-16 06:21] LABS: Albumin 2.3 g/dL (3.4-5.0); Bilirubin, Total 0.8 mg/dL (0.2-1.0); Magnesium 2.8 mg/dL (1.6-2.6); Phosphorus 3.4 mg/dL (2.5-4.90); Total Protein 5.8 g/dL (6.4-8.2)
[2021-07-16 09:00] VITALS: BP 96/73
[2021-07-16] MEDS: PANTOPRAZOLE 40 MG/10 ML VIAL INJ IV SCH (09:08)
[2021-07-16] MEDS: SACUBITRIL-VALSARTAN 24mg/26mg TAB PO SCH ×2 (09:08→21:38)
[2021-07-16] MEDS: HEPARIN DRIP/D5W 100UNITS/ML 250 ML IV SCH ×2 (09:16→14:00)
[2021-07-16] MEDS: ERTAPENEM SOD INJ 1 GM in SODIUM CHL 0.9% 50 ML IV SCH (09:22)
[2021-07-16] MEDS: SODIUM CHLOR 0.9% PF (SALINE LOCK) 10ML VIAL/SYR IV SCH ×2 (09:22→21:38)
[2021-07-16] MEDS: CARVEDILOL 3.125 MG TAB PO SCH ×2 (09:22→21:10)
[2021-07-16] MEDS: ONDANSETRON HCL 4 MG/2 ML VIAL IV PRN ×3 (11:47→21:47)
[2021-07-16 13:00] VITALS: BP 105/66
[2021-07-16 16:41] VITALS: BP 107/67
[2021-07-16] MEDS ORDERED: TPN PER PHARMACY IV NR ×8 (20:00)
[2021-07-16 22:00] VITALS: BP 99/57
[2021-07-17] MEDS ORDERED: diphenhdrAMINE HCL 25 MG CAP PO ONE (00:45)
[2021-07-17] MEDS: ACCU-CHEK COMFORT CURVE STRIP VI SCH ×6 (01:46→21:28)
[2021-07-17] MEDS: InsuLIN REG 1unit/0.01ml Soln (100units/ml) SC SCH ×6 (01:52→21:35)
[2021-07-17 05:00] VITALS: BP 106/58
[2021-07-17 06:22] LABS: Albumin 2.2 g/dL (3.4-5.0); BUN/Creatinine Ratio 23.2; Bilirubin, Total 0.8 mg/dL (0.2-1.0); Calcium 8.2 mg/dL (8.5-10.1); Magnesium 2.1 mg/dL (1.6-2.6); Phosphorus 3.4 mg/dL (2.5-4.90); Potassium 3.8 mmol/L (3.5-5.1); Total Protein 5.7 g/dL (6.4-8.2)
[2021-07-17 06:32] LABS: Basophils # (auto) 0 10 ^3/uL (0-0.2); Basophils % (auto) 0.6 % (0.0-2.0); Eosinophils # (auto) 0.1 10 ^3/uL (0-0.8); Eosinophils % (auto) 1.8 % (0.0-7.0); Hemoglobin 12.9 g/dL (13.5-17.5); Lymphocytes # (auto) 1.4 10 ^3/uL (0.4-5.4); Lymphocytes % (auto) 24.2 % (10.0-50.0); Mean Corpuscular Hemoglobin 29.6 pg (28.0-32.0); Mean Corpuscular Hgb Conc. 34.1 g/dL (32.0-36.0); Mean Corpuscular Volume 86.9 fL (80.0-100.0); Monocytes # (auto) 0.5 10 ^3/uL (0-1.3); Monocytes % (auto) 8.9 % (0.0-12.0); Neutrophils # (auto) 3.8 10 ^3/uL (1.6-8.6); Neutrophils % (auto) 64.5 % (37.0-80.0); Nucleated Red Blood Cells % 0.3 %; Red Blood Cells 4.38 10^6/uL (4.5-5.90); Red Cell Distribution Width 12.3 % (11.8-14.3); White Blood Cell 5.9 10^3/uL (4.4-10.8)
[2021-07-17 06:38] LABS: INR 2.03 (0.9-1.15); Partial Thromboplastin Time 43.6 sec (23.6-33.0)
[2021-07-17 09:00] VITALS: BP 91/61
[2021-07-17] MEDS: PANTOPRAZOLE 40 MG/10 ML VIAL INJ IV SCH (10:03)
[2021-07-17] MEDS: ERTAPENEM SOD INJ 1 GM in SODIUM CHL 0.9% 50 ML IV SCH (10:03)
[2021-07-17] MEDS: CARVEDILOL 3.125 MG TAB PO SCH (10:04)
[2021-07-17] MEDS: SODIUM CHLOR 0.9% PF (SALINE LOCK) 10ML VIAL/SYR IV SCH ×2 (10:04→21:28)
[2021-07-17] MEDS: ONDANSETRON HCL 4 MG/2 ML VIAL IV PRN ×2 (10:24→19:55)
[2021-07-17] MEDS: SACUBITRIL-VALSARTAN 24mg/26mg TAB PO SCH ×2 (10:24→21:29)
[2021-07-17] MEDS ORDERED: IOTHALAMATE MEGLUMINE INJ 250ML BOT UR ONE (11:37)
[2021-07-17 13:00] VITALS: BP 98/64
[2021-07-17] MEDS: HEPARIN DRIP/D5W 100UNITS/ML 250 ML IV SCH (14:00)
[2021-07-17 14:15] LABS: INR 2.12 (0.9-1.15); Partial Thromboplastin Time 30.4 sec (23.6-33.0)
[2021-07-17 17:00] VITALS: BP 95/63
[2021-07-17] MEDS ORDERED: diphenhdrAMINE HCL 25 MG CAP PO PRN (19:45)
[2021-07-17] MEDS ORDERED: diphenhdrAMINE-ZINC ACETATE 1 APPLIC APPL TOP PRN (19:45)
[2021-07-17] MEDS ORDERED: TPN PER PHARMACY IV NR ×9 (20:00)
[2021-07-17 22:00] VITALS: BP 98/66
[2021-07-17] MEDS: diphenhdrAMINE HCL 25 MG CAP PO PRN (22:05)
[2021-07-18] MEDS: InsuLIN REG 1unit/0.01ml Soln (100units/ml) SC SCH ×6 (02:13→22:22)
[2021-07-18] MEDS: ACCU-CHEK COMFORT CURVE STRIP VI SCH ×6 (02:13→22:21)
[2021-07-18 05:00] VITALS: BP 98/55
[2021-07-18 07:07] LABS: Albumin 2.1 g/dL (3.4-5.0); Calcium 8.2 mg/dL (8.5-10.1); Magnesium 2.6 mg/dL (1.6-2.6)
[2021-07-18 07:20] LABS: BUN/Creatinine Ratio 23.3; Bilirubin, Total 0.8 mg/dL (0.2-1.0); Phosphorus 4.6 mg/dL (2.5-4.90); Total Protein 5.7 g/dL (6.4-8.2)
[2021-07-18 09:00] VITALS: BP 104/61
[2021-07-18] MEDS: ERTAPENEM SOD INJ 1 GM in SODIUM CHL 0.9% 50 ML IV SCH (09:55)
[2021-07-18] MEDS: SACUBITRIL-VALSARTAN 24mg/26mg TAB PO SCH ×2 (09:56→23:52)
[2021-07-18] MEDS: SODIUM CHLOR 0.9% PF (SALINE LOCK) 10ML VIAL/SYR IV SCH ×2 (09:56→20:35)
[2021-07-18] MEDS: PANTOPRAZOLE 40 MG/10 ML VIAL INJ IV SCH (09:56)
[2021-07-18 10:12] LABS: Cholesterol 97 mg/dL (< 200)
[2021-07-18 10:15] LABS: HDL Cholesterol 8 mg/dL (40-59); LDL Cholesterol 73 mg/dL (< 100); Triglycerides 105 mg/dL (< 150)
[2021-07-18 13:00] VITALS: BP 91/62
[2021-07-18 17:00] VITALS: BP 102/62
[2021-07-18] MEDS ORDERED: TPN PER PHARMACY IV NR ×7 (20:00)
[2021-07-18] MEDS: ONDANSETRON HCL 4 MG/2 ML VIAL IV PRN (20:35)
[2021-07-18 22:00] VITALS: BP 93/54
[2021-07-18] MEDS: diphenhdrAMINE HCL 25 MG CAP PO PRN (22:25)
[2021-07-19] MEDS: InsuLIN REG 1unit/0.01ml Soln (100units/ml) SC SCH ×2 (02:00→05:41)
[2021-07-19] MEDS: ACCU-CHEK COMFORT CURVE STRIP VI SCH ×2 (02:04→05:40)
[2021-07-19 05:00] VITALS: BP 91/50
[2021-07-19 06:24] LABS: Potassium 4.8 mmol/L (3.5-5.1)
[2021-07-19 06:33] LABS: Albumin 2.3 g/dL (3.4-5.0); BUN/Creatinine Ratio 23.9; Bilirubin, Total 0.8 mg/dL (0.2-1.0); Calcium 8.8 mg/dL (8.5-10.1); Magnesium 2.5 mg/dL (1.6-2.6); Phosphorus 4.7 mg/dL (2.5-4.90); Pre Albumin 21.5 mg/dL (20.0-40.0)
[2021-07-19 09:00] VITALS: BP 95/58
[2021-07-19] MEDS: PANTOPRAZOLE 40 MG/10 ML VIAL INJ IV SCH (10:15)
[2021-07-19] MEDS: SACUBITRIL-VALSARTAN 24mg/26mg TAB PO SCH (10:15)
[2021-07-19] MEDS: ERTAPENEM SOD INJ 1 GM in SODIUM CHL 0.9% 50 ML IV SCH (10:15)
[2021-07-19 11:22] VITALS: BP 95/58
[2021-07-19 12:30] VITALS: BP 101/60
== END 2021-07-19 13:56 | disposition home or self-care (01) | DRG 710 ==
LOC: ER 17:39 → TELE 22:18 → TELE-WESTW 23:25 → WEST WING 07-06 14:45
PROVIDERS: ADMIT Nurse Practitioner Family; ATTEND Family Medicine
PROC: 4A023N7 Measurement of Cardiac Sampling and Pressure, Left Heart, Percutaneous Approach (ICD-10-PCS; principal; 2021-06-14)
PROC: 027135Z Dilation of Coronary Artery, Two Arteries with Two Drug-eluting Intraluminal Devices, Percutaneous Approach (ICD-10-PCS; 2021-06-14)
PROC: B211YZZ Fluoroscopy of Multiple Coronary Arteries using Other Contrast (ICD-10-PCS; 2021-06-14)
PROC: B215YZZ Fluoroscopy of Left Heart using Other Contrast (ICD-10-PCS; 2021-06-14)
PROC: 05HB33Z Insertion of Infusion Device into Right Basilic Vein, Percutaneous Approach (ICD-10-PCS; 2021-06-17)
PROC: B54MZZA Ultrasonography of Right Upper Extremity Veins, Guidance (ICD-10-PCS; 2021-06-17)
PROC: 0DBN8ZX Excision of Sigmoid Colon, Via Natural or Artificial Opening Endoscopic, Diagnostic (ICD-10-PCS; 2021-06-26)
DX: A41.51 Sepsis due to Escherichia coli [E. coli] (principal); N17.0 Acute kidney failure with tubular necrosis; I21.4 Non-ST elevation (NSTEMI) myocardial infarction; I42.9 Cardiomyopathy, unspecified; K76.0 Fatty (change of) liver, not elsewhere classified; N32.1 Vesicointestinal fistula; E11.65 Type 2 diabetes mellitus with hyperglycemia; N39.0 Urinary tract infection, site not specified; K57.32 Diverticulitis of large intestine without perforation or abscess without bleeding; E78.5 Hyperlipidemia, unspecified; I10 Essential (primary) hypertension; E78.00 Pure hypercholesterolemia, unspecified; F14.10 Cocaine abuse, uncomplicated; K64.8 Other hemorrhoids; B96.1 Klebsiella pneumoniae [K. pneumoniae] as the cause of diseases classified elsewhere; Z20.822 Contact with and (suspected) exposure to COVID-19; I25.119 Atherosclerotic heart disease of native coronary artery with unspecified angina pectoris; F12.10 Cannabis abuse, uncomplicated; F10.10 Alcohol abuse, uncomplicated; Z87.891 Personal history of nicotine dependence; Z82.49 Family history of ischemic heart disease and other diseases of the circulatory system; Z79.899 Other long term (current) drug therapy; Z83.3 Family history of diabetes mellitus; Z95.5 Presence of coronary angioplasty implant and graft
CPT/HCPCS: 36415; 36569; 45380; 71045; 71046; 72193; 74176; 74430; 80048; 80053; 80061; 81001; 82040; 82378; 82962; 83036; 83735; 84100; 84478; 84484; 85025; 85610; 85730; 86850; 86900; 86901; 87081; 87086; 87088; 87186; 87426; 92928; 92929; 93005; 93306; 93458; 96365; 96375; 96376; 99152; 99153; C1874; C9113; G0378; J0696; J1335; J1815; J1956; J2250; J2405; J3480; J3490; J7060; J7131; Q9967